=== PATIENT | female | born 1985 | race Caucasian/White ===

== ENCOUNTER 2024-12-31 22:00 | Emergency (ER) | payer BC, SELFPAY ==
--- OUTSIDE RECORDS SUMMARY | 2024-12-01 15:31 | XMS_ITS | Encounter Summary ---
Author Organization [facility] Address [address] [place] [address] Care Team Providers Care Circulation Clerk Name Role Phone None Reported, Pcp Primary Care Provider Unavail able Encounter Details Date Type Department Care Team (Latest Contact Info) Description 12/01/2024 3:31 PM CDT - 12/01/2024 11:59 PM CDT Hospital Encounter Department of Radiology in [place], [place] [address] [place] [phone] Perlita Villanueva, MIKE [address] [place] [phone] Examination Normal First First Trimester (HCC) Discharge Disposition: Home or Self Care Social History Tobacco Use Types Packs/Day Years Used Date Smoking Tobacco: Former Cigarettes 0 06/18/2000 - 05/18/2022 Smokeless Tobacco: Never Comments:curent vaping Alcohol Use Standard Drinks/Week Comments Yes 0 (1 standard drink = 0.6 oz pur e alcohol) occassionally [facility] Utilities Answer Date Recorded In the past 12 months has e electric, gas, oil, or water company threatened to shut off services in your home? No 02/07/2024 Humiliation, Afraid, Rape, and Kick questionnair e Answer Date Recorded Within the last year, have y ou been afraid of your partner or ex-partner? No 10/04/2022 Within the last year, have y ou been humiliated or emotionally abused in other ways by your partner or ex-partner? No Within the last year, have y ou been kicked, hit, slapped, or otherwise physically hurt by your partner or ex-partner? No 10/04/2022 Within the last year, have y ou been raped or forced to have any kind of sexual activity by your partner or ex-partner? No 10/04/2022 Hunger Vital Sign Answer Date Recorded Within the past 12 months, y ou worried that your food would run out before you got the money to buy more. Never true 02/07/20 24 Within the past 12 months, t he food you bought just didn't last and you didn't have money to get more. Never true 02/07/2024 PRAPARE - Transportation Answer Date Re corded In the past 12 months, has l ack of transportation kept you from medical appointments or from getting medications? No 01/17 In the past 12 months, has l ack of transportation kept you from meetings, work, or from getting things needed for daily living? No 02/07/2024 Depression Answer Date Recor ded PHQ-9 Total Score (max 27) 2 02/06 Housing Stability Answer Date Recorded What is your living situation today? I have a [facility] place to live 02/07/2024 Education Answer Date Recorded What is the highest level of school you have completed or the highest degree you have received? 12th grade 03/05/2020 Comments No Sex and Gender Information Value Date Recorded Sex Assigned at Female 06/27/2018 3:00 PM [employer] Legal Sex Female 9:43 AM [employer] Gender Identity Female 06/27/2018 3:00 PM [employer] Sexual Orientation Straight 06/27/2018 3: 00 PM [employer] documented as of this encounter Medications at Time of Discharge acetaminophen (TYLENOL) 500 mg tablet Take 2 tablets (1,000 mg total) by mouth every 6 (six) hours as needed for pain (alternate with ibuprofen every 3 hours. Do not exceed 4000 mg or 4 g in 24 hours.). 30 tablet 05/03/2021 hydrOXYzine (ATARAX) 25 mg tablet Take 1 tablet (25 mg total) by mouth every 8 (eight) hours as needed for anxiety. 30 tablet 5 10/29/2023 traZODone (DesyreL) 50 mg tablet Take 1 tablet (50 mg total) by mouth at bedtime as needed for sleep. 30 tablet 11 02/07/2024 FLUoxetine (PROzac) 20 mg capsule Take 1 capsule (20 mg total) by mouth daily. 90 capsule 3 09/25/2024 ibuprofen (ADVIL,MOTRIN) 200 mg tablet Take 3 tablets (600 mg total) by mouth every 6 (six) hours as needed for pain (Alternate with acetaminophen every 3 hours). 30 tablet 05/03/2021 semaglutide (Wegovy) 0.5 mg/0.5 mL pen injector injectionIndicat ions:Overweight Body Mass Index 25-29.9 Adult Inject 0.5 mg under the skin every 7 (seven) days. 2 mL 09/30/2024 5 triamcinolone (Kenalog) 0.025 % ointmentIndicati ons:Cheilitis Angular Apply 1 Application topically 2 (two) times a day. Apply to affected area twice daily for up to 2 weeks. 30 g 09/30/2024 5 documented as of this encounter Plan of Treatment Upcoming Encounters Date Type Department Care Team (Latest Contact Info) Description 01/27/2025 9:30 AM CDT Routine Department of Obstetrics and Gynecology in [place], [place] [address] [place] [phone] Mayra Art, SILAS, C.N.P., M.S.N. [address] [place] [phone] Discharge Disposition: Home or Self Care documented as of this encounter Procedures Procedure Name Priority Date/Time Associated Diagnosis Comments US OB FIRST TRIMESTER AND TRANSVAGINAL RAD - Routine (most inpatients and all outpatients) 12/01/2024 4:29 PM CDT Examination Normal First First Trimester (HCC) documented in this encounter Results * US OB First Trimester and Transvaginal (12/01/2024 4:29 PM CDT) Anatomical Region Laterality Modality Body, Ultrasound OB RST LOS, Ultrasound ARZ LOS, Ultrasound FLA LOS N/A Ultrasound Impressions 12/01/2024 4:33 PM CDT Single living intrauterine with an ultrasound gestational age of 7 weeks and 4 days giving an ALEXIS of 07/16/2025. Narrative 12/01/2024 4:33 PM CDT EXAM: US OB FIRST TRIMESTER AND TRANSVAGINAL COMPARISON: None. TECHNIQUE: Transabdominal and Transvaginal FINDINGS: Number of Gestations: Single Gestational age and ALEXIS by LMP or OB/EHR assignment: 7 w 6 d, ALEXIS: 07/14/2025 INTRAUTERINE Embryo: Normal, Lutcher-Rump Length: 13.0 mm Gestational Sac: Normal Yolk Sac: Normal Placenta Location: Too Early to ID. Age and ALEXIS by current ultrasound measurements: 7 w 4 d, ALEXIS: 07/16/2025. Cardiac activity: 167 Uterus: No unexpected findings. Right Ovary/Adnexa: Corpus luteum. 2 small cysts/ CL= 1.4cm; 1.7cm Left Ovary/Adnexa: Normal. Cervical Length: Subjectively normal by Transabd evaluation only Intraperitoneal Fluid: None. Procedure Note En Hopper Jr., M.D. - 12/01/2024 EXAM: US OB FIRST TRIMESTER AND TRANSVAGINAL COMPARISON: None. TECHNIQUE: Transabdominal and Transvaginal FINDINGS: Number of Gestations: Single Gestational age and ALEXIS by LMP or OB/EHR assignment: 7 w 6 d, ALEXIS:07/14/2025 INTRAUTERINE Embryo: Normal, Lutcher-Rump Length: 13.0 mm Gestational Sac: Normal Yolk Sac: Normal Placenta Location: Too Early to ID. Age and ALEXIS by current ultrasound measurements: 7 w 4 d, ALEXIS: 07/16/2025. Cardiac activity: 167 Uterus: No unexpected findings. Right Ovary/Adnexa: Corpus luteum. 2 small cysts/ CL= 1.4cm; 1.7cm Left Ovary/Adnexa: Normal. Cervical Length: Subjectively normal by Transabd evaluation only Intraperitoneal Fluid: None. IMPRESSION: Single living intrauterine with an ultrasound gestational age of7 weeks and 4 days giving an ALEXIS of 07/16/2025. us Perlita Villanueva CNRosaura IMG OB US PROCEDURES Final Resul t documented in this encounter Visit Diagnoses Diagnosis Examination Normal First First Trimester (HCC) documented in this encounter Additional Health Concerns Assessment Noted Time PHQ-9 Depression Total Score: 2 02/07/20 24 12:31 PM CDT documented as of this encounter Care Teams Circulation Clerk Relationship Specialty Start Date End Date None Reported, Pcp PCP - General Family Medicine 12/11/23 documented as of this encounter
--- OUTSIDE RECORDS SUMMARY | 2024-12-02 10:45 | XMS_ITS | Encounter Summary ---
Author Organization [facility] Address [address] [place] [address] Care Team Providers Care Nursing Program Director Name Role Phone None Reported, Pcp Primary Care Provider Unavail able Reason for Referral * Outpatient (Routine) - Closed Specialty Diagnoses / Procedures Referred By Contac t Referred To Contact Obstetrics and Gynecology Diagnoses Examination Normal First Trimester (HCC) Mayra Art APRN C.N.P., M.S.N. [address] [place] [address] Phone: tel: fax: [facility] Region Referral ID Status Reason Start Date Expiration Date Visits Re quested Visits Authorized [id number] Closed 12/02/2024 06/03/2026 1 1 Reason for Visit * Reason Comments Confirmation Of LMP 10/07 * Appointment Request (Routine) - Closed Specialty Diagnoses / Procedures Referred By Contac t Referred To Contact Obstetrics and Gynecology Referral ID Status Reason Start Date Expiration Date Visits Re quested Visits Authorized [id number] Closed 11/06/2024 02/06/2026 1 1 Encounter Details Date Type Department Care Team (Late st Contact Info) Description 12/02/2024 10:45 AM CDT Office Visit Department of Obstetrics and Gynecology in [place], [place] [address] [place] [phone] Mayra Art APRN C.N.P., M.S.N. [address] [place] [phone] Examination Normal First Trimester (HCC) (Primary Dx) Discharge Disposition: Home or Self Care Social History Tobacco Use Types Packs/Day Years Used Date Smoking Tobacco: Former Cigarettes 0 06/18/2000 - 05/18/2022 Smokeless Tobacco: Never Tobacco Cessation:Counseling Given: Not Answered Comments:curent vaping Alcohol Use Standard Drinks/Week Comments Yes 0 (1 standard drink = 0.6 oz pur e alcohol) occassionally [facility] Utilities Answer Date Recorded In the past 12 months has e [employer], gas, oil, or water [employer] threatened to shut off services in your [...] your living situation today? I have a [facility] [place] [address] to live 02/07/2024 Education Answer Date Recorded What is the highest level of school you have completed or the highest degree you have received? 12th grade 03/05/2020 Estimated Date of Delivery Comme nts Yes 07/14/2025 Based on last me nstrual period of 10/07/2024 Sex and Gender Information Value Date Recorded Sex Assigned at Female 06/27/2018 3:00 PM [employer] Legal Sex Female 9:43 AM [employer] Gender Identity Female 06/27/2018 3:00 PM [employer] Sexual Orientation Straight 06/27/2018 3: 00 PM [employer] documented as of this encounter Last Filed Vital Signs Vital Sign Reading Time Taken Comments Blood Pressure 99/68 12/02/2024 10:26 AM CDT Pulse 79 12/02/2024 10:26 AM CDT Temperature - - Respiratory Rate - - Oxygen Saturation - - Inhaled Oxygen Concentration - - Weight 66.3 kg (146 lb 1.6 oz) 12/02/2024 10:26 AM CDT Height 156 cm (5' 1.42) 12/02/2024 10:26 AM CDT Body Mass Index 27.23 12/02/2024 10:26 AM CDT documented in this encounter Patient Instructions * Patient Instructions* Mayra Art, SILAS, C.N.P., M.S.N. - 12/02/2024 10:45 AM CDT Tamela - the nicotine inhaler was discontinued in the [place] in 2022 due to supply shortages. It looks like there are options over the counter through retailers. I did send in a prescription for the nasal spray if you would like to try that. This would help with withdrawal symptoms and can be used as infrequently as you could tolerate, thus keeping dosing very low. Congratulations on your ! Thank you for trusting [facility] with your care. This message contains education to support you during the first trimester of your . Please watch the video, Your Care, at the link below. This video link is for patient and family education use only. Do not post on websites or share publicly. [email or web address] Please review these materials via the hyperlinks below: Even if a Mother has HIV, Her Baby Doesn't Have To [id number] [facility] Guide to a Healthy Bookmark [id number] Standard Labs [id number] Why Should I Consider Giving My Baby Breast Milk [id number] Patient Billable Services [id number] You and Your Child WIC Can Help [id number] Education Classes Registration Website [id number] Public Health referral: [email or web address] The [employer] antimicrobial stewardship program has created a patient education video for patientswith a penicillin allergy label to explain the potential harms of this label and encourage them to seek out penicillin allergy testing. The video can be previewed here: [email or web address] Many patients have questions related to Genetic Screening during . We have included some information for you to review. Guide to a Healthy - Chapter 20: Genetic Screening Guide to a Health - Chapter 21: testing Optional Tests [id number] Genetic Support (Guyanese Version) Genetic Support (Amharic version) Managing Nausea and Vomiting During It is common for women to have nausea and vomiting while they are . It is especially commonduring the first three months. Although you may hear it called morning sickness, you can have nausea at any time of day. There are many things you can do to manage your nausea. This brochure gives you ideas about things you can do to ease your symptoms. It also tells you when to contact your health care provider. Usually you need to do a combination of things to feel better. Try the ideas listed here. For example, try eating small meals and going for walks. If you try something for 2 to 3 days, and you don't notice improvement, keep doing what you have been doing but add something new. You may want to keep a record of when you feel sick, so you can figure out what triggers your nausea. You should note: The time. Smells, noises, movement around you. Foods that don???t appeal to you. Avoid the triggers you can identify, if possible. If your nausea is related to other symptoms such as diarrhea, fever or chills, the nausea may not be related to your , and you should contact a member of your health care team. Try diet and lifestyle solutions first. If diet and lifestyle suggestions don???t work, you may need to add medications. Your nausea may not go away completely, but these ideas may help you manage it. And remember, for most women the nausea goes away in a few months. Diet Try these diet suggestions if you have nausea and vomiting: If you are nauseated, don???t worry about eating healthy foods. Just eat what appeals to you. Eat small, frequent meals that are high in carbohydrates and low in fat. Before you go to bed at night, eat a high protein snack. This may help to lessen your nausea in themorning. Examples are plain jakob food cake, peanut butter and crackers, yogurt, string cheese, nuts or cottage cheese. Eat soda crackers or dry toast before you get out of bed in the morning. Stay hydrated. Drink small amounts of water, water with lemon or other fluids often during the day. Eat bland foods. Avoid spicy and fatty foods or foods with a strong odor. Try different flavors and textures - salty, sweet, tart, bland, crunchy, warm, cold, wet and dry. You may tolerate some flavors and textures better. Sip liquids at meals. Avoid hot or cold foods. Try clear liquids such as broth, gelatin or juice. If you have been vomiting, try a small amount ofclear liquid - such as a teaspoon - every 10 to 15 minutes at first. If you keep those down, try mild, non-fatty foods. Try carbonated drinks such as franco alton or clear sodas. Try franco lollipops, lemon drops, fruit drops, peppermints, ice or chewing gum. If odors make you queasy, others may have to prepare meals and do the grocery shopping. If your vitamins make you queasy, take them at night or with a snack. You can try gummy maternity vitamins. If these things don???t help, try stopping the vitamins. You can restart them when your nausea is better. Lifestyle Try relaxation therapies such as deep breathing, progressive muscle relaxation or guided imagery. You can also listen to music. Get plenty of fresh air. If the weather allows, try to walk outside every day. Get enough rest. Being tired can make nausea worse. Typically, you need more rest than usual duringthe first three months of . Complementary treatments Try acupressure bands. These are also called Sea Bands. Try aromatherapy with isopropyl alcohol, franco, peppermint, or other scents that help. Quease EASE inhaler gives you short-term relief only. Try herbal supplements such as franco. Before you take franco, talk with your health care provider. Efky-esf-xwsjwkc supplements and medications If diet, lifestyle and complementary therapies do not improve your nausea a lot, you can try addingsome of the following. Before you try any medications or supplements, check with a member of your health care team. Herbal supplements such as franco (250 mg. capsules four times a day). Vitamin B6 (pyridoxine). You must take this every day in the recommended dose (such as 25 mg. threetimes a day) in order for it to work. Usually you notice improvement in 48 to 72 hours after you start taking it. It won???t work if you only take it when you have nausea. Ask your health care provider how much you should take. If nothing already mentioned works, keep trying diet, lifestyle and complementary treatments in different combinations. One thing alone may not help. In addition, you can also add uljt-ciu-knnqhhx doxylamine (Unisom, Aldex AN) at bedtime along with the vitamin B6. Usually the dose of doxylamine is 10 mg. or ?? a 25-milligram tablet. Ask your health care provider how much you should take. Doxylamine is used as a sleep aid. If taking it at night helps you, you can add additional doses along with the vitamin B6 during the day. Sometimes, prescription medication or IV hydration may be needed. When to contact a member of your health care team Contact a member of your health care team if you notice the following. If you have signs of dehydration, which include: Less urination than usual. Concentrated, dark urine. Dry mucus membranes. Racing heart. Fainting. If you haven???t been able to keep down any food or fluids for 24 hours. PHONE NUMBERS TO CALL: If you have questions about this information or about your , call: During work hours, Sunday - Sunday [place] [phone] After hours and on weekends or holidays COVERAGE SPECIALIST RN Triage: [phone] This material is for your education and information only. This content does not replace medical advice, diagnosis or treatment. New medical research may change this information. If you have questionsabout a medical condition, always talk with your health care provider. ?? 2013 [facility] Medical Education and Research ([facility]). All rights reserved. MEDICATIONS SAFE DURING AND Every woman who is wants to do the right thing for her baby. There are many concerns or difficulties a woman can encounter. Many medications cross the placenta and are also excretedin breast milk. Therefore, it is best to avoid medications during , especially during the first trimester and while nursing. When you are not feeling well, it is often helpful to reflect on what has happened during your day. Have you skipped a meal, are you drinking enough fluids, are you exhausted? Take care of your self first. In order to help you, we have listed ideas and some medications that may help and are considered safe during . Remember, the least amount of medication is always the best. Please call us at if your symptoms are not relieved after two to three days, become worse, or if you have questions about these or any other medications. Problem Treatments Call Provider If Colds, Nasal Congestion, Cough and Fever Steam to clear sinuses Saline nose drops, Neosynephrine, Sudafed, Tylenol, Actifed, Dristan and Tylenol Cold and Flu Plain cough medicine, like Robitussin, for no more than a week and Afrin Nasal Donnellson only as a lastresort - Do Not Use for more than 3 days Fever > 100.4 Coughing up green mucus Sore throat Gargle with warm salt water, popsicles, or suck on hard candy Lozenges (alcohol free) Severe or persistent sore throat Fever > 100.4 Mild headache Calm, quiet atmosphere, cool washcloths to head, rest, 2 quarts of water each day Tylenol (do not take aspirin, ibuprofen, Aleve, Motrin, or Naprosyn) Severe or persistent headache Visual changes with headache Backache Warm bath, heating pad, pelvic rock exercises, good posture and massage Tylenol (Okay to use regular or extra strength) Back pain at the waist level with fever and chills Rhythmic backache with or without cramping before your 9th month Constipation Plenty of fluids, prune juice and fresh fruits and vegetables Citrucel, Colace, Fibercon, Metamucil, Milk of Magnesia and Senokot Severe straining Bloody stool or bleeding with bowel movement Heartburn Small frequent meals. Avoid laying down after eating. Eat cashews or hazelnuts. Avoid leaving things in your mouth for over five minutes (Gum, Life Savers, hard candy) Maalox, Tums, Mylanta or Papaya tablets with meals No relief Hemorrhoids Sitz bath (Warm water soaks). Soak in Epsom salt bath. Chilled witch mario alberto packs. Tuck, Preparation H, Anusol or Tronolane Cream Bleeding or severe pain Rectal pain Insomnia Do regular exercise. Try to maintain a regular sleep pattern. Elevate the head of the bed to sleep. Relaxation tapes and try a warm cup of milk with a warm bath. Tea-chamomile, catnip or peppermint tea Several days of very poor sleep affecting quality of life Nausea, vomiting or morning sickness Crackers next to bed. Small frequent meals. Franco alton or franco root tea, raspberry or mint tea, Sea Bands (Acupressure bands) Vitamin B6 (25 mg by mouth three times per day) Unable to keep anything down (Including liquids) in24 hours Persistent vomiting Dizziness Diarrhea Clear liquids until diarrhea resolves, then eat banana, rice, applesauce or dry toast After 12 weeks: Kaopectate and Imodium for less than 24 hours only Diarrhea persists Blood in stool Uterine cramping Allergy Benadryl 24 mg for 6-to-8 hours as needed Symptoms persist Yeast infection Use as directed: Monistat or Terazol Odor to discharge Symptoms persist Change in discharge DO NOT USE - AVOID THESE ESSENTIAL OILS DURING AND (see lists below) Essential Oil Latin Name Aniseed Pimgurwinderlla anistriston Basil ct. estragole Ocimum basilicum Birch Betula lenta *Camphor Cinnamomum camphora Hyssop Hyssopus officinalis Mugwort Artemisia vulgaris Parsley seed or leaf Petroselinum sativum Pennyroyal Mentha pulegium Jasmeet Salvia officinalis Tansy Tanacetum vulgare Tarragon Artemisia dracunculus Thuja Thuja occidentalis [place] Gaultheria procumbens Wormwood Artemisia absinthium *Note that *Camphor is not the same as Ho Wood/Ho Sproul chemotype Linalool (Cinnamomum camphora ct. Linalool), which has no known contraindications. documented in this encounter Progress Notes * Mayra Art APRN, C.N.P., M.S.N. - 12/02/2024 10:45 AM CDT SUBJECTIVE CHIEF COMPLAINT/REASON FOR VISIT Confirmation of Visit HISTORY OF PRESENT ILLNESS Tamela Chadwick is a 39 y.o. @ 8w0d presenting for her confirmation of visit. Patient's last menstrual period was 10/07/2024. and reports history of regular periods. The couplewas not preventing . She had a positive test November 01. This is her first with her partner, Lane. The couple is excited. Estimated Date of Delivery: 07/14/25 determined by ultrasound at 7 weeks 4 days gestational age She stopped fluoxetine and Wygovy with positive test. She has PRN trazodone for sleep buthas not needed in . OB History 3 Para 2 Term 2 0 AB 0 Living 2 SAB IAB Ectopic Molar Multiple Live Births 2 OBSTETRICAL RISK FACTORS: advanced maternal age, gestational diabetes in second Twin ? [x] NO [] YES [ Folic Acid 1 mg PO daily] History of NTD? [x] NO [] YES [ Folic Acid 4 mg PO daily] History of Thyroid Disorder? [x] NO [] YES [ TSH levels ] History of pre-eclampsia/HELLP [x] NO [] YES [Baseline labs ] Advanced Maternal Age? [] NO [x] YES [Genetic Testing] Pre-Gestational Diabetes [x] NO [] YES [Hgb A1c] History of <37W [x] NO [] YES [ Cervical Length by TVUS starting 16 weeks every 2 week till 24 weeks] Past medical, surgical and family history has been reviewed and updated including allergies and current medication OBJECTIVE BP 99/68 (BP Location: Left arm, Patient Position: Sitting, Cuff Size: Large) Pulse 79 Ht 156 cm Wt 66.3 kg LMP 10/07/2024 BMI 27.23 kg/m?? DIAGNOSTICS I have reviewed previously performed/collected OB ultrasound(s). ACOG Guidelines recommend using ALEXIS based on ultrasound at 7w4d gestational age. Estimated Date of Delivery: 07/14/25 Dating recommendations were according to the ACOG Calculator Application. PHYSICAL EXAMINATION well developed, well nourished, in no acute distress, alert, and oriented X 3 Neurologic: Cranial nerves are grossly intact. ASSESSMENT / PLAN #1 Examination Normal First Trimester (HCC) Issues discussed at this visit: 1. Confirmed estimated due date and communicated it with the patient 2. Discussed nausea and vomiting in as well as addressed changes in nutritional demands in . Reviewed methods available for symptom management and after counselling the patient didnot request treatment. 3. We also discussed first-trimester warnings for earlier follow-up and reporting of any worsening nausea and vomiting which is common in . 4. Discussed safe medication use in and reinforced vitamin supplementation. 5. She will remain off mental health medications at this time. Reports she has increased anxiety when her son is not doing well with his own addictions and recovery, but currently he is in treatment and stable. 6. She is interested in genetic testing with labs next visit. 7. Currently vaping, interested in trying nicotine replacement to quit. Dislikes gum or lozenge taste, but has used inhaler in past. Would want something very low dose as she feels she has cut use considerably already. Prescription for nasal spray option to try. education and Initial OB laboratory studies will be completed at the 12 week gestational visit in addition to any earlier laboratory studies needing to be completed today based on obstetrical risk factors noted above. Upon review of the medical and obstetrical history the patient's level of care is designated as low(level 1). Based on level of risk, she will follow up for her 12 week Initial OB visit with [facility]. She understands the need to identify a delivering location and provider group for 3rd trimester. We explored options within the [facility] system ([facility], [facility] [place] [facility]) as well as outside the system. The couple resides in [place]. We will discuss again as the advances. All the patient questions and concerns were addressed and answered to satisfaction. Mayra Art APRN, C.N.P., M.S.N. documented in this encounter Plan of Treatment Upcoming Encounters Date Type Department Care Team (Latest Contact Info) Description 01/27/2025 9:30 AM CDT Routine Department of Obstetrics and Gynecology in [place], [place] [address] [place] [phone] Mayra Art APRN, C.N.P., M.S.N. [address] [place] [phone] Discharge Disposition: Home or Self Care Scheduled Referrals Name Type Priority Associated Diagnoses Order Schedule Obstetrics and Gynecology - Obstetrics consult (clinic) Outpatient Referral Routine Examination Normal First Trimester (HCC) Expected: 12/30/2024 (Approximate), Expires: 03/04/2026 documented as of this encounter Visit Diagnoses Diagnosis Examination Normal First Trimester (HCC)- Primary documented in this encounter Additional Health Concerns Assessment Noted Time PHQ-9 Depression Total Score: 2 02/07/20 24 12:31 PM CDT documented as of this encounter Care Teams Nursing Program Director Relationship Specialty Start Date End Date None Reported, Pcp PCP - General Family Medicine 12/11/23 documented as of this encounter
--- OUTSIDE RECORDS SUMMARY | 2024-12-30 10:30 | XMS_ITS | Encounter Summary ---
Author Organization [facility] Address [address] [place] [address] Care Team Providers Care Student Accounts Manager Name Role Phone None Reported, Pcp Primary Care Provider Unavail able Reason for Referral * Outpatient (Routine) - Authorized Specialty Diagnoses / Procedures Referred By Contac t Referred To Contact Obstetrics and Gynecology Diagnoses Multigravida Advanced Maternal Age Affecting Management (HCC) Mayra Art APRN C.N.P., M.S.N. [address] [place] [address] Phone: tel: fax: [facility] Region Referral ID Status Reason Start Date Expiration Date V isits Requested Visits Authorized [id number] Authorized 12/30/2024 07/01/2026 1 1 Reason for Visit * Outpatient (Routine) - Closed Specialty Diagnoses / Procedures Referred By Contac t Referred To Contact Obstetrics and Gynecology Diagnoses Examination Normal First Trimester (HCC) Mayra Art APRN, C.N.P., M.S.N. [address] [place] [address] Phone: tel: fax: [facility] Region Referral ID Status Reason Start Date Expiration Date Visits Re quested Visits Authorized [id number] Closed 12/02/2024 06/03/2026 1 1 Encounter Details Date Type Department Care Team (Latest Contact Info) Description 12/30/2024 10:30 AM CDT Initial Department of Obstetrics and Gynecology in [place], [place] [address] [facility] [place] [id number] Mayra Art APRN C.N.P., M.S.N. [address] [place] [phone] GA: 12w0d Discharge Disposition: Home or Self Care Social History Tobacco Use Types Packs/Day Years Used Date Smoking Tobacco: Former Cigarettes 0 06/18/2000 - 05/18/2022 Smokeless Tobacco: Never Comments:curent vaping Alcohol Use Standard Drinks/Week Comments Not Currently 0 (1 standard drink = 0.6 oz pur e alcohol) occassionally [facility] Utilities Answer Date Recorded In the past 12 months has e [employer], gas, oil, or water [employer] threatened to shut off services in your [...] Recor ded PHQ-9 Total Score (max 27) 5 12/30 Housing Stability Answer Date Recorded What is your living situation today? I have a [employer] place to live 02/07/2024 Education Answer Date Recorded What is the highest level of school you have completed or the highest degree you have received? 12th grade 03/05/2020 Estimated Date of Delivery Comme nts Yes 07/14/2025 Based on last me nstrual period of 10/07/2024 Sex and Gender Information Value Date Recorded Sex Assigned at Female 06/27/2018 3:00 PM SR VICE PRESIDENT Legal Sex Female 9:43 AM SR VICE PRESIDENT Gender Identity Female 06/27/2018 3:00 PM SR VICE PRESIDENT Sexual Orientation Straight 06/27/2018 3: 00 PM SR VICE PRESIDENT documented as of this encounter Last Filed Vital Signs Vital Sign Reading Time Taken Comments Blood Pressure 99/65 12/30/2024 10:53 AM CDT Pulse 84 12/30/2024 10:53 AM CDT Temperature 36.8 C (98.2 F) 12/30/2024 10:53 AM CDT Respiratory Rate - - Oxygen Saturation - - Inhaled Oxygen Concentration - - Weight 69.1 kg (152 lb 6.4 oz) 12/30/2024 10:53 AM CDT Height - - Body Mass Index 28.41 12/02/2024 10:26 AM CDT documented in this encounter Progress Notes * Mayra Art, SILAS, C.N.P., M.S.N. - 12/30/2024 10:30 AM CDT Images from the original note were not included. SUBJECTIVE CHIEF COMPLAINT/REASON FOR VISIT New History and Physical Visit HISTORY OF PRESENT ILLNESS Tamela Chadwick is a 39 y.o. @ 12w0d Estimated Date of Delivery: 07/14/25 by LMP consistent with 8 week ultrasound presenting for her intake history and physical examination. The patient's partner and/or father of the baby's name is Lane. This is their first together. Specific concerns today include: none. Patient has no complaints. PRIOR OBSTETRIC COMPLICATIONS: Gestational Diabetes (Diet Controlled) CURRENT OBSTETRICAL RISK FACTORS: advanced maternal age and tobacco abuse Twin ? [x] NO [] YES [Folic Acid 1 mg PO daily] History of NTD? [x] NO [] YES [Folic Acid 4 mg PO daily] History of pre-eclampsia/HELLP [x] NO [] YES [Baseline labs] History of Thyroid Disorder? [x] NO [] YES [TSH levels ] Advanced Maternal Age? [] NO [x] YES [Genetic Testing] Pre-Gestational Diabetes [x] NO [] YES [Hgb A1c] History of <37W [x] NO [] YES [Cervical Length by TVUS starting 16 weeks every 2 week till 24 weeks] REVIEW OF SYSTEMS A comprehensive review of systems was negative except for: Constitutional: fatigue RELEVANT MEDICAL HISTORY/SCREENINGS: GYNECOLOGICAL HISTORY AND PROBLEMS: None CERVICAL CANCER SCREEN HISTORY: Up-To-Date and last performed on 08/26/2024 CLINICAL RISK ASSESSMENT FOR PREECLAMPSIA: Major Risk Factors (2 points): none, no risk factors Minor risk factors (1 point) : age greater than or equal to 35 Total score of major and minor risk factors: 1 The patient does not meet the criteria for prophylactic aspirin use. INCONTINENCE SCREEN: Urine: NONE; Anal: analincontin: NONE SEXUALLY TRANSMITTED ILLNESS: none GENETIC HISTORY SCREENING: negative PSYCHOSOCIAL ASSESSMENT: - denies uncontrolled mood disturbances or psychiatric concerns - denies domestic violence/abuse concerns - denies history of or current alcohol or other substance abuse 10/04/2022 12:44 PM 06/22/2023 8:18 AM 02/07/2024 12:31 PM GAD7 Score NOLA-7 Total Score (max 21) 0 6 2 Patient-reported 10/04/2022 12:44 PM 06/22/2023 8:11 AM 02/07/2024 12:31 PM PHQ9 Score PHQ-9 Total Score (max 27) 0 4 2 Patient-reported Data saved with a previous flowsheet row definition OB History 3 Para 2 Term 2 0 AB 0 Living 2 SAB IAB Ectopic Molar Multiple Live Births 2 I have reviewed the patient's past medical, surgical, and family history, including allergies and active medication list and have made changes as reported by the patient. Allergies[1] OBJECTIVE BP 99/65 Pulse 84 Temp 36.8 ??C Wt 69.1 kg LMP 10/07/2024 BMI 28.41 kg/m?? PHYSICAL EXAMINATION Constitutional: well developed, well nourished, in no acute distress, alert, and oriented X 3 HEENT: Conjunctivae anicteric and not inspected. Maintained dentition and moist oral mucosa. No palpable cervical adenopathy or thyroid masses. Heart: regular rate and rhythm Lungs: Clear to auscultation, no audible adventitial sounds, equal bilateral air entry. Abdomen: abdomen is soft without significant tenderness, masses, organomegaly or guarding Lower Extremity: All normal.. Pelvic exam: - Vulva: normal female genitalia - Vagina: Mucosa with intact rugae and good estrogen effect - Discharge: normal and physiologic - Bladder and Urethra: Urethra normal - Cervix: GCC done. - Bimanual exam: deferred DIAGNOSTICS Bedside Limited Abdominal OB US: viable intrauterine , 136 bpm I have also reviewed previously performed/collected OB ultrasound(s). ASSESSMENT / PLAN Diagnosis Plan 1. Multigravida Advanced Maternal Age Affecting Management ([facility]) Panorama Screen- Sent Out Lab Obstetrics and Gynecology office visit (clinic) 2. Examination Normal First Trimester ([facility]) Obstetrics and Gynecology - Obstetrics consult (clinic) Type and Screen (with Reflex Antibody ID) Bacterial Culture, Aerobic + Susceptibility, Urine CBC with Differential, Blood Chlamydia / Gonorrhoeae Amplified RNA Hemoglobin A1c Hemoglobin Electrophoresis Evaluation HBs Antigen , Serum HBs Antibody , Serum HBc Total Ab , Serum Hepatitis C Virus Antibody Screen HIV-1/-2 Ag and Ab Scrn, Plasma Rubella Antibodies, IgG Syphilis Total Antibody with Reflex, S ([facility]) Urinalysis with Microscopic if Indicated: Urine, Midstream Varicella-Zoster Antibody, IgG, Serum nicotine (NicotroL NS) 10 mg/mL nasal spray Panorama Screen - Sent Out Lab OB COLLABORATIVE RISK DESIGNATION: Level 1 The patient was counselled regarding the safe prescribing and consumption of medications in . Reviewed precautions of first trimester signs and symptoms for earlier follow up including nausea and vomiting. Other comfort/relief measures for common discomforts of discussed as approp riate. Discussed travel precautions and work environment precautions in terms of risk of exposure to infections, or work related hazards. Discussed genetic screening and pros/cons of every approach given her level of risk. Non-invasive screen (NIPS) ordered She does want gender reported. Discussed nutrition, hydration, exercise, and weight gain recommendations. 7 kg- 11.5 kg The patient was screened for preeclampsia risk factors. The patient does not meet the criteria for prophylactic aspirin use. The standard obstetrical laboratory work up will be collected today and the patient will be contacted with results. -She was on fluoxetine prior to and stopped with positive test. She feels her mood symptoms are manageable and stable. -Currently vaping but trying to discontinue altogether. She was unable to roll picker nicotine spray after last visit. We resent prescription today. -She anticipates transfer of care to [facility] for 3rd trimester and delivery care. Would like to stay local for now. CHECK ITEMS IDENTIFIED RISK FACTORS [CONSIDER REFERRAL TO MANAGER AUDIT OF ONE OR MORE RISK FACTORS WERE IDENTIFIED] [] Past Obstetric Events and infant outcomes: [] Medical considerations in a current : [] Breast feeding history : [] Family Circumstances: [] Desire for : [x] Tobacco or substance use: [] Depression and Anxiety: [] Safety: [] Intimate partner violence: [] Stress : [] Barriers to care: [] Unstable housing: [] Communication barriers and nutrition: FOLLOW UP PLAN: Consults and Follow-ups to Schedule Obstetrics and Gynecology office visit (clinic) Jan 27, 2025 (Approximate) F/u OB Region: [facility] Region Reason for Visit: OB Provider needed: Self Visit length: Short Patient location: Patient Preference Appropriate options of care and visit schedule discussed with patient. Plan for TRUONG Follow-up in 4 weeks. PATIENT EDUCATION Ready to learn, barriers to learning: None. All patient question and concerns were addressed and answered to her satisfaction. Mayra Art APRN, C.N.P., M.S.N. [1] Allergies Allergen Reactions Pollen Extracts Other (see comments) Runny nose, itchy eyes documented in this encounter Plan of Treatment Upcoming Encounters Date Type Department Care Team (Latest Contact Info) Description 01/27/2025 9:30 AM CDT Routine Department of Obstetrics and Gynecology in [address] [phone] Mayra Art, SILAS, C.N.P., M.S.N. [address] [place] [phone] Discharge Disposition: Home or Self Care Pending Results Name Type Priority Associated Diagnoses Date /Time Panorama Screen - Sent Out Lab Lab Routine Examination Normal First Trimester (HCC) Multigravida Advanced Maternal Age Affecting Management (HCC) 12/30/2024 12:07 PM CDT Scheduled Orders Name Type Priority Associated Diagnoses Orde r Schedule Panorama Screen - Sent Out Lab Lab Routine Examination Normal First Trimester (HCC) Multigravida Advanced Maternal Age Affecting Management (HCC) Expected: 12/30/2024, Expires: 04/01/2026 Scheduled Referrals Name Type Priority Associated Diagnoses Order Schedule Obstetrics and Gynecology office visit (clinic) Outpatient Referral Routine Multigravida Advanced Maternal Age Affecting Management (HCC) Expected: 01/27/2025 (Approximate), Expires: 04/01/2026 documented as of this encounter Procedures Procedure Name Priority Date/Time Associated Diagnosis Comments URINALYSIS WITH MICROSCOPIC IF INDICATED, U Routine 12/30/2024 11:57 AM CDT Examination Normal First Trimester ([facility]) BACTERIAL CULTURE, AEROBIC + SUSC, URINE Routine 12/30/2024 11:57 AM CDT Examination Normal First Trimester ([facility]) CHLAMYDIA/GONORRHOEA E AMPLIFIED RNA Routine 12/30/2024 11:57 AM CDT Examination Normal First Trimester ([facility]) documented in this encounter Results * Varicella-Zoster Antibody, IgG, Serum (12/30/2024 12:07 PM CDT) [facility] Varicella-Zoster Ab, IgG, S Positive 12/31/2024 11:53 AM CDT [facility] Comment: Results suggest response to immunization or prior exposure to the virus. ----REFERENCE VALUE---- Vaccinated: Positive (>=1.1 AI) Unvaccinated: Negative (<=0.8 AI) Varicella IgG Antibody Index 1.2 12/31/2024 11:53 AM CDT CA Blood (Blood, Venous) 12/30/2024 12:07 PM CDT 12/30/2024 7:31 PM CDT Mayra Art APRN, C.N.P., M.S.N. LAB MICROBIO LOGY - BLOOD ORDERABLES Final Result Performing Organization Address City/[facility]/ZIP Co de Phone Number [facility] [address] [place] [address], [facility] in [address] [address] * Syphilis Total Antibody with Reflex, S ([facility]) (12/30/2024 12:07 PM CDT) Syphilis Total Ab w/ Reflex Nonreactive Nonreactive 12/31/2024 11:53 AM CDT [facility] Comment: No serologic evidence of infection with T. pallidum (syphilis). Repeat testing may be considered in patients with suspected acute or primary syphilis in 2-4 weeks. For additional information on interpretation of the syphilis reverse algorithm and results, see: [email or web address] Blood (Blood, Venous) 12/30/2024 12:07 PM CDT 12/30/2024 7:31 PM CDT Mari Barnett APRN.NDevika., M.S.N. LAB BLOOD AD D-ON Final Result Performing Organization Address City/[facility]/ZIP Co de Phone Number [facility] [address] [place] [address], [facility] in [address] [address] * Rubella Antibodies, IgG (12/30/2024 12:07 PM CDT) Rubella Ab, IgG, S Positive 12/31/2024 11:53 AM CDT [facility] Comment: Results suggest response to immunization or prior exposure to the virus. ----REFERENCE VALUE---- Vaccinated: Positive (>=1.0 AI) Unvaccinated: Negative (<=0.7 AI) Rubella IgG Antibody Index 1.3 12/31/2024 11:53 AM CDT [facility] Blood (Blood, Venous) 12/30/2024 12:07 PM CDT 12/30/2024 7:31 PM CDT us Mayra Art APRN C.N.P., M.S.N. LAB MICROBIO LOGY - BLOOD ORDERABLES Final Result [facility] [address] [place] [address], [facility] in [address] [address] * HIV-1/-2 Ag and Ab Scrn, Plasma (12/30/2024 12:07 PM CDT) HIV Ag/Ab Scrn, P Negative Negative 12/30/2024 4:17 PM CDT [facility] Comment: Negative result does not rule out HIV infection. If exposure to HIV infection occurred <14 days ago, contact the laboratory to request addition of HIV-1/HIV-2 RNA detection , Plasma (HPP12). HIV-1 p24 Ag Scrn, P Negative Negative 12/30/2024 4:17 PM CDT [facility] Comment: Negative result does not rule out HIV infection. If exposure to HIV infection occurred <14 days ago, contact the laboratory to request addition of HIV-1/HIV-2 RNA detection , Plasma (HPP12). HIV-1 Ab Scrn, P Negative Negative 12/30/2024 4:17 PM CDT [facility] Comment: Negative result does not rule out HIV infection. If exposure to HIV infection occurred <14 days ago, contact the laboratory to request addition of HIV-1/HIV-2 RNA detection , Plasma (HPP12). HIV-2 Ab Scrn, P Negative Negative 12/30/2024 4:17 PM CDT [facility] Comment: Negative result does not rule out HIV infection. If exposure to HIV infection occurred <14 days ago, contact the laboratory to request addition of HIV-1/HIV-2 RNA detection , Plasma (HPP12). Blood (Blood, Venous) 12/30/2024 12:07 PM CDT 12/30/2024 2:50 PM CDT Mayra Art APRN, C.N.P., M.S.N. LAB MICROBIO LOGY - BLOOD ORDERABLES Final Result Performing Organization Address City/[facility]/ZIP Co de Phone Number [facility] [address] [place] [phone], [place] [facility] in [address] [address] * Hepatitis C Virus Antibody Screen (12/30/2024 12:07 PM CDT) HCV Ab Scrn , S Negative Negative 12/30/2024 9:53 PM CDT [facility] Comment: Consumption of high-dose biotin supplement within 12 hours of blood collection for this test can cause false-negative results. Blood (Blood, Venous) 12/30/2024 12:07 PM CDT 12/30/2024 8:52 PM CDT Result [facility] Mayra Art APRN, C.N.P., M.S.N. LAB MICROBIO LOGY - BLOOD ORDERABLES Final Result Performing Organization Address City[facility]/ZIP Co de Phone Number [facility] [address] [place] [address] [facility] [address] [place] [address] * HBc Total Ab , Serum (12/30/2024 12:07 PM CDT) HBc Total Ab , S Negative Negative 12/30/2024 9:53 PM CDT [facility] Blood (Blood, Venous) 12/30/2024 12:07 PM CDT 12/30/2024 8:52 PM CDT Mayra Art APRN, C.N.P., M.S.N. LAB MICROBIO LOGY - BLOOD ORDERABLES Final Result [facility] [address] [place] [id number] [facility] [address] [place] [id number] * HBs Antibody , Serum (12/30/2024 12:07 PM CDT) HBs Antibody , S Negative 12/30/2024 4:56 PM CDT [facility] Comment: Patient is presumed NOT to be immune to infection with HBV. Consumption of high-dose biotin supplement within 12 hours of blood collection for this test can cause false-negative results. ----REFERENCE VALUE---- Unvaccinated: Negative Vaccinated: Positive HBs Antibody, Quantitative, S <3.50 mIU/mL 12/30/2024 4:56 PM CDT [facility] Comment: ----REFERENCE VALUE---- <8.50: Negative 8.50-11.49: Indeterminate >=11.50: Positive Blood (Blood, Venous) 12/30/2024 12:07 PM CDT 12/30/2024 4:30 PM CDT Mayra Art APRN, C.N.P., M.S.N. LAB MICROBIO LOGY - BLOOD ORDERABLES Final Result [facility] [address] [place] [address], [address] [address] * HBs Antigen , Serum (12/30/2024 12:07 PM CDT) HBs Antigen , S Negative Negative 12/30/2024 9:53 PM CDT [facility] Blood (Blood, Venous) 12/30/2024 12:07 PM CDT 12/30/2024 8:52 PM CDT Mayra Art APRN, C.N.P., M.S.N. LAB MICROBIO LOGY - BLOOD ORDERABLES Final Result [facility] [address] [place] [id number] [facility] [address] [place] [phone] * Hemoglobin Electrophoresis Evaluation (12/30/2024 12:07 PM CDT) Hb A 97.3 95.8 - 98.0 % 12/31/2024 2:46 PM CDT DTL Hb F 0.0 0.0 - 0.9 % 12/31/2024 2:46 PM CDT DTL Hb A2 2.7 2.0 - 3.3 % 12/31/2024 2:46 PM CDT [facility] Comment: ----ADDITIONAL INFORMATION---- This test has been modified from the dental aide's instructions. Its performance characteristics were determined by [facility] in a manner consistent with CLIA requirements. This test has not been cleared or approved by the U.S. Food and Drug Administration. HPLC Hb Variant, B See Interpretation 12/31/2024 2:46 PM CDT [facility] Comment: ----ADDITIONAL INFORMATION---- This test has been modified from the dental aide's instructions. Its performance characteristics were determined by [facility] in a manner consistent with CLIA requirements. This test has not been cleared or approved by the U.S. Food and Drug Administration. Hb Electrophoresis Interpretation No electrophoretic evidence of abnormal hemoglobin or beta thalassemia. See comment. Comment: These results do not exclude alpha thalassemia. The vast majority of hemoglobin variants and beta complex thalassemias are excluded, including the common variants Hbs S, C, D, and E, although some rare clinically significant hemoglobin disorders are electrophoretically silent. In particular, some variants such as Hb Constant Spring, or other variants, may not be detected. If otherwise unexplained lifelong/familial symptoms such as hemolysis (i.e. West body hemolytic anemia), microcytosis, erythrocytosis, cyanosis, or hypoxia are present and additional testing is desired, please call the Met[facility] Hematology Laboratory ( ). If alpha thalassemia is a consideration, alpha globin gene deletion/duplication analysis is available (AGDD/Alpha Globin Cluster Locus Del/Dup). If genotyping to assess for Hb Constant [place] is desired, please order [facility]/Alpha Globin Gene Sequencing, B. Additional sample required. Methodologies utilized in this interpretation include: capillary electrophoresis, HPLC. 12/31/2024 2:46 PM CDT [facility]TL Blood (Blood, Venous) 12/30/2024 12:07 PM CDT 12/31/2024 7:20 AM CDT Fred Barnett APRNNDevika., M.S.N. LAB BLOOD AD D-ON Final Result [facility] [address] [place] [address], [facility] [address] [facility] [address] [place] [address] * Hemoglobin A1c (12/30/2024 12:07 PM CDT) Hemoglobin A1c, B 5.3 4.2 - 5.6 % 12/30/2024 12:37 PM CDT [facility] Blood (Blood, Venous) 12/30/2024 12:07 PM CDT 12/30/2024 12:18 PM CDT Fred Barnett APRNNDevika., M.S.N. LAB BLOOD AD D-ON Final Result [facility] [address] [place] [address], [place] NPRG [facility] [address] [place] [address] * CBC with Differential, Blood (12/30/2024 12:07 PM CDT) Hemoglobin 12.7 11.6 - 15.0 g/dL 12/30/2024 12:24 PM CDT [facility] Hematocrit 36.8 35.5 - 44.9 % 12/30/2024 12:24 PM CDT [facility] Erythrocytes 3.94 3.92 - 5.13 x10(12)/L 12/30/2024 12:24 PM CDT [facility] MCV 93.4 78.2 - 97.9 fL 12/30/2024 12:24 PM CDT [facility] RBC Distrib Width 12.2 12.2 - 16.1 % 12/30/2024 12:24 PM CDT [facility] Platelet Count 233 157 - 371 x10(9)/L 12/30/2024 12:24 PM CDT [facility] Leukocytes 8.6 3.4 - 9.6 x10(9)/L 12/30/2024 12:24 PM CDT [facility] Neutrophils 6.27 1.56 - 6.45 x10(9)/L 12/30/2024 12:24 PM CDT [facility] Lymphocytes 1.81 0.95 - 3.07 x10(9)/L 12/30/2024 12:24 PM CDT [facility] Monocytes 0.44 0.26 - 0.81 x10(9)/L 12/30/2024 12:24 PM CDT [facility] Eosinophils <0.04 0.03 - 0.48 x10(9)/L 12/30/2024 12:24 PM CDT [facility] Basophils <0.04 0.01 - 0.08 x10(9)/L 12/30/2024 12:24 PM CDT [facility] Blood (Blood, Venous) 12/30/2024 12:07 PM CDT 12/30/2024 12:18 PM CDT us Mayra Art APRN C.N.P., M.S.N. LAB BLOOD AD D-ON Final Result [facility] [address] [place] [address], [facility] NPRG [facility] [address] [place] [address] * Type and Screen (with Reflex Antibody ID) (12/30/2024 12:07 PM CDT) ABO Group B 12/30/2024 1:19 PM CDT [facility] Rh Type NEG 12/30/2024 1:19 PM CDT [facility] Antibody Screen NEG 1:35 PM CDT [facility] Type & Screen Expiration 01/02/2025 23:59 12/30/2024 1:35 PM CDT [facility] ELXM Eligible Y 12/30/2024 1:35 PM CDT [facility] Blood (Blood, Venous) 12/30/2024 12:07 PM CDT 12/30/2024 12:18 PM CDT us Mayra Art APRN, C.N.P., M.S.N. LAB BLOOD BA NK TEST ORDERABLES Final Result [facility] [address] [place] [address], [facility] NPRG [facility] [address] [place] [address] * Urinalysis with Microscopic if Indicated: Urine, Midstream (12/30/2024 11:57 AM CDT) Source Urine, Urine, Midstream 12/30/2024 12:00 PM CDT [facility] Clarity Clear Clear 12/30/2024 12:04 PM CDT [facility] Color Yellow 12/30/2024 12:04 PM CDT [facility] Comment: ----REFERENCE VALUE---- Colorless Yellow Barbara Blood Negative Negative 12/30/2024 12:04 PM CDT [facility] Nitrite Negative Negative 12/30/2024 12:04 PM CDT [facility] Leukocyte Esterase Negative Negative 12/30/2024 12:04 PM CDT [facility] Protein Negative mg/dL 12/30/2024 12:04 PM CDT [facility] Comment: ----REFERENCE VALUE---- Negative Trace Glucose Negative Negative mg/dL 12/30/2024 12:04 PM CDT [facility] Ketones, QI(U) Negative Negative mg/dL 12/30/2024 12:04 PM CDT [facility] Bilirubin Negative Negative 12/30/2024 12:04 PM CDT [facility] pH 6.0 5.0 - 8.0 12/30/2024 12:04 PM CDT [facility] Specific [place] <=1.005 1.001 - 1.035 12/30/2024 12:04 PM CDT [facility] Urobilinogen 0.2 0.2 - 1.0 mg/dL 12/30/2024 12:04 PM CDT [facility] Urine (Urine, Midstream) 12/30/2024 11:57 AM CDT 12/30/2024 11:59 AM CDT us Mari Barnett APRN.N.Esperanza., M.S.N. LAB URINE OR DERABLES Final Result [facility] [address] [place] [address], [facility] NPRG [facility] [address] [place] [address] * Chlamydia / Gonorrhoeae Amplified RNA (12/30/2024 11:57 AM CDT) Source Swab, Vagina 12/31/2024 2:03 AM CDT [facility] Chlamydia trachomatis amplified RNA Negative Negative 12/31/2024 2:03 AM CDT [facility] Source Swab, Vagina 12/31/2024 2:03 AM CDT MKTO Neisseria gonorrhoeae amplified RNA Negative Negative 12/31/2024 2:03 AM CDT MKTO Swab (Vagina) 12/30/2024 11: 57 AM CDT 12/30/2024 2:05 PM CDT us Mayra Art APRN, Mari.N.P., M.S.N. LAB MICROBIOLOGY - GENERAL ORDERABLES Final Result [facility] [address] [place] [address], [place] MKTO [address] [address] * Bacterial Culture, Aerobic + Susceptibility, Urine (12/30/2024 11:57 AM CDT) Urine Culture Urogenital microbiota, susceptibilities not performed per laboratory criteria. 12/31/2024 8:15 AM CDT MKTO Urine (Urine, Midstream) 12/30/2024 11:57 AM CDT 12/30/2024 2:05 PM CDT Comment:Specimen Source Site : Urine us Mayra Art APRN, C.N.P., M.S.N. LAB MICROBIOLOGY - GENERAL ORDERABLES Final Result Performing Organization Address City/State/[facility] Co de Phone Number [facility] [address] [place] [address], [facility] MKTO [facility] in [place] [address] [place] [address] documented in this encounter Visit Diagnoses Diagnosis Multigravida Advanced Maternal Age Affecting Management (HCC)- Primary Examination Normal First Trimester (HCC) documented in this encounter Additional Health Concerns Assessment Noted Time PHQ-9 Depression Total Score: 5 12/31/19 25 1:49 PM CDT documented as of this encounter Care Teams Student Accounts Manager Relationship Specialty Start Date End Date None Reported, Pcp PCP - General Family Medicine 12/11/23 documented as of this encounter
--- OUTSIDE RECORDS SUMMARY | 2024-12-30 12:01 | XMS_ITS | Encounter Summary ---
Author Organization [facility] Address [address] [place] [address] Care Team Providers Care Mushroom Cutter Name Role Phone None Reported, Pcp Primary Care Provider Unavail able Encounter Details Date Type Department Care Team (Latest Contact Info) Description 12/30/2024 12:01 PM CDT - 12/30/2024 11:59 PM CDT Hospital Encounter Department of Laboratory Medicine in [place], [place] [address] [place] [phone] Mayra Art, SILAS, C.N.P., M.S.N. [address] [place] [phone] Examination Normal First Trimester (HCC); Multigravida Advanced Maternal Age Affecting Management (HCC) Discharge Disposition: Home or Self Care Social History Tobacco Use Types Packs/Day Years Used Date Smoking Tobacco: Former Cigarettes 0 06/18/2000 - 05/18/2022 Smokeless Tobacco: Never Comments:curent vaping Alcohol Use Standard Drinks/Week Comments Not Currently 0 (1 standard drink = 0.6 oz pur e alcohol) occassionally [facility] Utilities Answer Date Recorded In the past 12 months has e [employer], gas, oil, or water company threatened to [...] your living situation today? I have a [facility] place to live 02/07/2024 Education Answer Date Recorded What is the highest level of school you have completed or the highest degree you have received? 12th grade 03/05/2020 Estimated Date of Delivery Comme nts Yes 07/14/2025 Based on last me nstrual period of 10/07/2024 Sex and Gender Information Value Date Recorded Sex Assigned at Female 06/27/2018 3:00 PM JET WIPER Legal Sex Female 9:43 AM JET WIPER Gender Identity Female 06/27/2018 3:00 PM JET WIPER Sexual Orientation Straight 06/27/2018 3: 00 PM JET WIPER documented as of this encounter Medications at [...] needed for anxiety. 30 tablet 5 10/29/2023 nicotine (NicotroL NS) 10 mg/mL nasal sprayIndications :Examination Normal First Trimester (HCC) Use 1 spray in each nostril every 1 to 2 hours or as needed for tobacco withdrawal symptoms. Not to exceed 40 doses (80 sprays) per day 10 mL 2 12/30/2024 twrtots-Si-fmkb- FA 27 mg iron- 1 mg tablet Take 1 tablet by mouth daily. traZODone (DesyreL) 50 mg tablet Take 1 tablet (50 mg total) by mouth at bedtime as needed for sleep. 30 tablet 11 02/07/2024 documented as of this encounter Plan of Treatment Upcoming Encounters Date Type Department Care Team (Latest Contact Info) Description 01/27/2025 9:30 AM CDT Routine Department of Obstetrics and Gynecology in [place], [place] [address] [place] [phone] Mayra Art, SILAS, C.N.P., M.S.N. [address] [place] [phone] Discharge Disposition: Home or Self Care Pending [...] Multigravida Advanced Maternal Age Affecting Management (HCC) Once for 1 Occurrences starting 12/30/2024 until 12/30/2024 documented as of this encounter Procedures Procedure Name Priority Date/Time Associated Diagnosis Comments HBC TOTAL AB , S Routine 12/30/2024 12:07 PM CDT Examination Normal First Trimester (HCC) HBS ANTIBODY , S Routine 12/30/2024 12:07 PM CDT Examination Normal First Trimester (HCC) HCV AB SCRN , S Routine 12/31/19 12:07 PM CDT Examination Normal First Trimester (HCC) TESTING LOCATION Routine 12/30/2024 12:0 7 PM CDT HIV-1/-2 AG AND AB SCRN, PLASMA Routine 12/30/2024 12:07 PM CDT Examination Normal First Trimester (HCC) SYPHILIS TOTAL AB W/ REFLEX S Routine 12/30/2024 12:07 PM CDT Examination Normal First Trimester (HCC) HBS ANTIGEN , S Routine 12/31/19 12:07 PM CDT Examination Normal First Trimester (HCC) HEMOGLOBIN ELECTROPHORESIS CASCADE, B Routine 12/30/2024 12:07 PM CDT Examination Normal First Trimester (HCC) RUBELLA ANTIBODIES, IGG Routine 12/31/19 12:07 PM CDT Examination Normal First Trimester (HCC) CBC WITH DIFFERENTIAL, B Routine 12/30/2024 12:07 PM CDT Examination Normal First Trimester (HCC) TYPE AND SCREEN Routine 12/30/2024 12:07 PM CDT Examination Normal First Trimester (HCC) VARICELLA-ZOSTER AB, IGG, S Routine 12/30/2024 12:07 PM CDT Examination Normal First Trimester (HCC) HEMOGLOBIN A1C, B Routine 12/30/2024 12: 07 PM CDT Examination Normal First Trimester (HCC) documented in this encounter Results * Testing Location (12/30/2024 12:07 PM CDT) Testing Location [facility] DEFAULT 12/30/2024 12:19 PM CDT [facility] Blood 12/30/2024 12:0 7 PM CDT 12/30/2024 12:18 PM CDT Mayra Art APRN, C.N.P., M.S.N. LAB BLOOD BA NK TEST ORDERABLES Final Result Performing Organization Address City/[facility]/ZIP Co de Phone Number [facility] [address] [place] [address], [place] NPRG [facility] [address] [place] [address] * Varicella-Zoster Antibody, IgG, Serum (12/30/2024 12:07 PM CDT) Varicella-Zoster Ab, IgG, S Positive 12/31/2024 11:53 AM CDT [facility] Comment: Results suggest response to immunization or prior exposure to the virus. ----REFERENCE VALUE---- Vaccinated: Positive (>=1.1 AI) Unvaccinated: Negative (<=0.8 AI) Varicella IgG Antibody Index 1.2 12/31/2024 11:53 AM CDT [facility] Blood (Blood, Venous) 12/30/2024 12:07 PM CDT 12/30/2024 7:31 PM CDT rFed Barnett APRNNDevika., M.S.N. LAB MICROBIO LOGY - BLOOD ORDERABLES Final Result [facility] [address] [place] [address], [place] [facility] [place] [address] [place] [address] * Syphilis Total Antibody with Reflex, S ([facility]) (12/30/2024 12:07 PM CDT) Syphilis Total Ab w/ Reflex Nonreactive Nonreactive 12/31/2024 11:53 AM CDT [facility] Comment: No serologic evidence of infection with T. pallidum (syphilis). Repeat testing may be considered in patients with suspected acute or primary syphilis in 2-4 weeks. For additional information on interpretation of the syphilis reverse algorithm and results, see: [email or web address] Blood (Blood, Venous) 12/30/2024 12:07 PM CDT 12/30/2024 7:31 PM CDT Mayra Art APRN, C.N.P., M.S.N. LAB BLOOD AD D-ON Final Result Performing Organization Address [facility]/ZIP Co de Phone Number [facility] [address] [place] [phone], [facility] in [address] [address] * Rubella Antibodies, IgG (12/30/2024 12:07 PM CDT) Rubella Ab, IgG, S Positive 12/31/2024 11:[address] [facility] Comment: Results suggest response to immunization or prior exposure to the virus. ----REFERENCE VALUE---- Vaccinated: Positive (>=1.0 AI) Unvaccinated: Negative (<=0.7 AI) Rubella IgG Antibody Index 1.3 12/31/2024 11:[address] [facility] Blood (Blood, Venous) 12/30/2024 12:07 PM CDT 12/30/2024 7:31 PM CDT Mari Barnett APRN.NDevika., M.S.N. LAB MICROBIO LOGY - BLOOD ORDERABLES Final Result Performing Organization Address [facility]/ZIP Co de Phone Number [facility] [address] [place] [address], [facility] in [address] [address] * HIV-1/-2 Ag and Ab Scrn, Plasma [...] 12:07 PM CDT 12/30/2024 2:50 PM CDT us Mayra Art APRN, C.N.P., M.S.N. LAB MICROBIO LOGY - BLOOD ORDERABLES Final Result [facility] [address] [place] [address], [facility] [place] [address] [place] [address] * Hepatitis C Virus Antibody Screen (12/30/2024 12:07 PM CDT) HCV Ab Scrn , S Negative Negative 12/30/2024 9:53 PM CDT [facility] Comment: Consumption of high-dose biotin supplement within 12 hours of blood collection for this test can cause false-negative results. Blood (Blood, Venous) 12/30/2024 12:07 PM CDT 12/30/2024 8:52 PM CDT Mayra Art APRN, C.N.P., M.S.N. LAB MICROBIO LOGY - BLOOD ORDERABLES Final Result Performing Organization Address City/[facility]/ZIP Co de Phone Number [facility] [address] [place], [place] [address] [place] [address] [place] [address] * HBc Total Ab , Serum (12/30/2024 12:07 PM CDT) Pathologist [facility] HBc Total Ab , S Negative Negative 12/30/2024 9:53 PM CDT [facility] Blood (Blood, Venous) 12/30/2024 12:07 PM CDT 12/30/2024 8:52 PM CDT Mayra Art APRN, C.N.P., M.S.N. LAB MICROBIO LOGY - BLOOD ORDERABLES Final Result Performing Organization Address City/[facility] Co de Phone Number [facility] [address] [place], [place] [phone] [place] [address] [place] [address] * HBs Antibody , Serum (12/30/2024 12:07 PM CDT) Pathologist [facility] HBs Antibody , S Negative 12/30/2024 4:56 [...] MICROBIO LOGY - BLOOD ORDERABLES Final Result [facility] [address] [place] [address], [facility] [place] [address] [place] [address] * HBs Antigen , Serum (12/30/2024 12:07 PM CDT) Pathologist [facility] HBs Antigen , S Negative Negative 12/30/2024 9:53 PM CDT [facility] Blood (Blood, Venous) 12/30/2024 12:07 PM CDT 12/30/2024 8:52 PM CDT Mayra Art APRN, C.N.P., M.S.N. LAB MICROBIO LOGY - BLOOD ORDERABLES Final Result Performing Organization Address [facility] Co de Phone Number [facility] [address] [place] [address] [facility] [address] [place] [address] * Hemoglobin Electrophoresis Evaluation (12/30/2024 12:07 PM CDT) Hb A 97.3 95.8 - 98.0 % 12/31/2024 2:46 PM CDT DTL Hb F 0.0 0.0 - 0.9 % 12/31/2024 2:46 PM CDT DTL Hb A2 2.7 2.0 - 3.3 % 12/31/2024 2:46 PM CDT [facility] Comment: ----ADDITIONAL INFORMATION---- This test has been modified from the podiatry teacher's instructions. Its performance characteristics were determined by [facility] in a manner consistent with CLIA requirements. This test has not been cleared or approved by the U.S. Food and Drug Administration. HPLC Hb Variant, B See Interpretation 12/31/2024 2:46 PM CDT DTL Comment: ----ADDITIONAL INFORMATION---- This test has been modified from the podiatry teacher's instructions. Its performance characteristics were determined by [facility] in a manner consistent with CLIA requirements. [...] If genotyping to assess for Hb Constant Spring is desired, please order [facility]/Alpha Globin Gene Sequencing, B. Additional sample required. Methodologies utilized in this interpretation include: capillary electrophoresis, HPLC. 12/31/2024 2:46 PM CDT DTL Blood (Blood, Venous) 12/30/2024 12:07 PM CDT 12/31/2024 7:20 AM CDT Fred Barnett APRNN.P., M.S.N. LAB BLOOD AD D-ON Final Result [facility] [address] [place] [address], [facility] DT [address] [place] [address] * Hemoglobin A1c (12/30/2024 12:07 PM CDT) Pathologist [facility] Hemoglobin A1c, B 5.3 4.2 - 5.6 % 12/30/2024 12:37 PM CDT [facility] Blood (Blood, Venous) 12/30/2024 12:07 PM CDT 12/30/2024 12:18 PM CDT us Mayra Art APRN, C.N.P., M.S.N. LAB BLOOD AD D-ON Final Result [facility] [address] [place] [address], [facility] NPRG [facility] [address] [place] [address] * CBC with Differential, Blood (12/30/2024 12:07 [...] Mayra Art APRN, C.N.P., M.S.N. LAB BLOOD AD D-ON Final Result [facility] [address] [place] [address], [facility] NPRG [address] [address] * Type and Screen (with Reflex Antibody [...] BLOOD BA NK TEST ORDERABLES Final Result Performing Organization Address City/[facility]/ZIP Co de Phone Number [facility] [address] [place] [address], [place] [facility] [place] [address] [place] [address] documented in this encounter Visit Diagnoses Diagnosis Examination Normal First Trimester (HCC) Multigravida Advanced Maternal Age Affecting Management (HCC) documented in this encounter Additional Health Concerns Assessment Noted Time PHQ-9 Depression Total Score: 5 12/31/19 25 1:49 PM CDT documented as of this encounter Care Teams Mushroom Cutter Relationship Specialty Start Date End Date None Reported, Pcp PCP - General Family Medicine 12/11/23 documented as of this encounter
--- OUTSIDE RECORDS SUMMARY | 2024-12-31 22:02 | XMS_ITS | Encounter Summary ---
Author Organization [facility] Address [address] [place] [address] Care Team Providers Care Eating Disorder Specialist Name Role Phone None Reported, Pcp Primary Care Provider Unavail able Encounter Details Date Type Department Care Team (Late st Contact Info) Description 01/06/2004 Historical Ophthalmology RST OPH Dilip Ledesma M.D. [address] [place] [phone] Social History Tobacco Use Types Packs/Day Years Used Date Smoking Tobacco: Never Assessed Comments Unknown Sex and Gender Information Value Date Recorded Sex Assigned at Female 06/27/2018 3:00 PM CRANE HOOKER Legal Sex Female 9:43 AM CRANE HOOKER Gender Identity Female 06/27/2018 3:00 PM CRANE HOOKER Sexual Orientation Straight 06/27/2018 3: 00 PM CRANE HOOKER documented as of this encounter Progress Notes * Dilip Ledesma M.D. - 01/06/2004 12:00 AM CDT Eye General CHIEF COMPLAINT recheck recurrent HSV keratitis right eye HISTORY OF PRESENT ILLNESS right eye comfortable. Denies dryness. . Finished 400 mg of acyclovir one week after last visit. Has not used since then as she misplaced her new rx. 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 Plan: Continue Acyclovir 800 bid, discussed prophylaxis and side effects. Do not breast feed or attempt conception while on this med. 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 CDM Reports - EYEGEN Id: [id number] Status: Fnl documented in this encounter Plan of Treatment Upcoming Encounters Date Type Department Care Team (Latest Contact Info) Description 01/27/2025 9:30 AM CDT Routine Department of Obstetrics and Gynecology in [place], [place] [address] [place] [phone] Mayra Art, SILAS, C.N.P., M.S.N. [address] [place] [phone] Discharge Disposition: Home or Self Care documented as of this encounter Visit Diagnoses Not on filedocumented in this encounter Additional Health Concerns Infection Onset Date Last Indicated Resolved Time COVID19 Pending 02/04/2020 02/04/2020 02/05/2020 6 :32 AM CDT COVID19 Pending 04/20/2020 04/20/2020 04/22/2020 9 :18 AM CRANE HOOKER COVID19 Pending 04/22/2020 04/22/2020 04/23/2020 2 :45 PM CRANE HOOKER COVID19 Pending 04/25/2020 04/25/2020 04/26/2020 2 :22 PM CRANE HOOKER COVID19 Pending 05/02/2021 05/02/2021 05/02/2021 1 0:49 AM CRANE HOOKER MRSA 03/11/2023 03/11/2023 06/09/2023 5:49 AM CRANE HOOKER documented as of this encounter Care Teams Eating Disorder Specialist Relationship Specialty Start Date End Date None Reported, Pcp PCP - General Family Medicine 12/11/23 documented as of this encounter
--- OUTSIDE RECORDS SUMMARY | 2024-12-31 22:02 | XMS_ITS | Encounter Summary ---
Author Organization [facility] Address [address] [place] [address] Care Team Providers Care Front Desk Administrator Name Role Phone None Reported, Pcp Primary Care Provider Unavail able Encounter Details Date Type Department Care Team (Late st Contact Info) Description 12/11/2003 Historical Ophthalmology RST OPH Dilip Ledesma M.D. [address] [place] [address] Social History Tobacco Use Types Packs/Day Years Used Date Smoking Tobacco: Never Assessed Comments Unknown Sex and Gender Information Value Date Recorded Sex Assigned at Female 06/27/2018 3:00 PM CALL CENTER DISPATCHER Legal Sex Female 9:43 AM CALL CENTER DISPATCHER Gender Identity Female 06/27/2018 3:00 PM CALL CENTER DISPATCHER Sexual Orientation Straight 06/27/2018 3: 00 PM CALL CENTER DISPATCHER documented as of this encounter Progress Notes * Dilip Ledesma M.D. - 12/11/2003 12:00 AM CDT Eye General CHIEF COMPLAINT recheck recurrent HSV keratitis OD HISTORY OF PRESENT ILLNESS Right eye feels dry, decr discomfort. Vision okay. 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 Plan: Continue Acyclovir 400mg PO 5 times/day. for one more wk, then 800 bid, discussed prophylaxisand side effects. Do not breast feed or attempt conception while on this med. 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 CDM Reports - EYEGEN Id: [id number] Status: Fnl documented in this encounter Plan of Treatment Upcoming Encounters Date Type Department Care Team (Latest Contact Info) Description 01/27/2025 9:30 AM CDT Routine Department of Obstetrics and Gynecology in [place], [place] [address] [place] [phone] Mayra Art, SILAS, C.N.P., M.S.N. [address] [place] [phone] Discharge Disposition: Home or Self Care documented as of this encounter Visit Diagnoses Not on filedocumented in this encounter Additional Health Concerns Infection Onset Date Last Indicated Resolved Time COVID19 Pending 02/04/2020 02/04/2020 02/05/2020 6 :32 AM CDT COVID19 Pending 04/20/2020 04/20/2020 04/22/2020 9 :18 AM CALL CENTER DISPATCHER COVID19 Pending 04/22/2020 04/22/2020 04/23/2020 2 :45 PM CALL CENTER DISPATCHER COVID19 Pending 04/25/2020 04/25/2020 04/26/2020 2 :22 PM CALL CENTER DISPATCHER COVID19 Pending 05/02/2021 05/02/2021 05/02/2021 1 0:49 AM CALL CENTER DISPATCHER MRSA 03/11/2023 03/11/2023 06/09/2023 5:49 AM CALL CENTER DISPATCHER documented as of this encounter Care Teams Front Desk Administrator Relationship Specialty Start Date End Date None Reported, Pcp PCP - General Family Medicine 12/11/23 documented as of this encounter
--- OUTSIDE RECORDS SUMMARY | 2024-12-31 22:02 | XMS_ITS | Encounter Summary ---
Author Organization [facility] Address [address] [place] [address] Care Team Providers Care Diploma Maker Name Role Phone None Reported, Pcp Primary Care Provider Unavail able Encounter Details Date Type Department Care Team (Late st Contact Info) Description 12/08/2003 Historical Ophthalmology RST OPH Jeovany Bertrand M.D. Social History Tobacco Use Types Packs/Day Years Used Date Smoking Tobacco: Never Assessed Comments Unknown Sex and Gender Information Value Date Recorded Sex Assigned at Female 06/27/2018 3:00 PM FIRE ALARM TECHNICIAN Legal Sex Female 9:43 AM FIRE ALARM TECHNICIAN Gender Identity Female 06/27/2018 3:00 PM FIRE ALARM TECHNICIAN Sexual Orientation Straight 06/27/2018 3: 00 PM FIRE ALARM TECHNICIAN documented as of this encounter Progress Notes * Jeovany Bertrand M.D. - 12/08/2003 12:00 AM CDT Eye General HISTORY OF PRESENT ILLNESS Patient got tongue pierced yesterday. Last night she had sensation of soreness OD, she described asfeeling of dry eye. This morning she awoke with OD red and crusted. She does not wear CL, she does not recall any recent trauma to the eye. She currently has URTI - has been on antibiotics for strep throat since Sunday. Otherwise no known contact with infectious conjunctivitis. IMPRESSION / REPORT / PLAN #1 Recurrent HSV keratitis OD. 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 Plan: Acyclovir 400mg PO 5 times/day. Follow-up: Sunday am or sooner prn. DIAGNOSIS #1 Recurrent HSV keratitis OD. 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 CDM Reports - EYEGEN Id: [id number] Status: Fnl documented in this encounter Plan of Treatment Upcoming Encounters Date Type Department Care Team (Latest Contact Info) Description 01/27/2025 9:30 AM CDT Routine Department of Obstetrics and Gynecology in [place], [place] [address] [place] [phone] Mayra Art, SILAS, C.N.P., M.S.N. [address] [place] [phone] Discharge Disposition: Home or Self Care documented as of this encounter Visit Diagnoses Not on filedocumented in this encounter Additional Health Concerns Infection Onset Date Last Indicated Resolved Time COVID19 Pending 02/04/2020 02/04/2020 02/05/2020 6 :32 AM CDT COVID19 Pending 04/20/2020 04/20/2020 04/22/2020 9 :18 AM FIRE ALARM TECHNICIAN COVID19 Pending 04/22/2020 04/22/2020 04/23/2020 2 :45 PM FIRE ALARM TECHNICIAN COVID19 Pending 04/25/2020 04/25/2020 04/26/2020 2 :22 PM FIRE ALARM TECHNICIAN COVID19 Pending 05/02/2021 05/02/2021 05/02/2021 1 0:49 AM FIRE ALARM TECHNICIAN MRSA 03/11/2023 03/11/2023 06/09/2023 5:49 AM FIRE ALARM TECHNICIAN documented as of this encounter Care Teams Diploma Maker Relationship Specialty Start Date End Date None Reported, Pcp PCP - General Family Medicine 12/11/23 documented as of this encounter
--- OUTSIDE RECORDS SUMMARY | 2024-12-31 22:02 | XMS_ITS | Encounter Summary ---
Author Organization [facility] Address [address] [place] [address] Care Team Providers Care Coal Cutter Name Role Phone None Reported, Pcp Primary Care Provider Unavail able Encounter Details Date Type Department Care Team (Late st Contact Info) Description 05/03/2005 Historical Ophthalmology RST OPH Dilip Ledesma M.D. [address] [place] [address] Social History Tobacco Use Types Packs/Day Years Used Date Smoking Tobacco: Never Assessed Comments Unknown Sex and Gender Information Value Date Recorded Sex Assigned at Female 06/27/2018 3:00 PM PRODUCE LABORER Legal Sex Female 9:43 AM PRODUCE LABORER Gender Identity Female 06/27/2018 3:00 PM PRODUCE LABORER Sexual Orientation Straight 06/27/2018 3: 00 PM PRODUCE LABORER documented as of this encounter Progress Notes * Dilip Ledesma M.D. - 05/03/2005 12:00 AM CST Eye General CHIEF COMPLAINT 16 month f/u recurrent HSV right eye, corneal scar and thinning right eye, history of uveitis righteye HISTORY OF PRESENT ILLNESS Patient gets cold sores in her nose a lot, this year about two weeks ago got cold sores on both sides of nose and that does not usually does not happen. Patient denies light flashes, floaters, or double vision. 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 Plan: Continue antiviral prophylaxis. disucssed in detail. BID dosing is a problem for her. Therefore reasonable to change to valacv 500 qd. increase to 1000 qd if sx recurr. recheck one year and prn. 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 CDM Reports - EYEGEN Id: [id number] Status: Fnl documented in this encounter Plan of Treatment Upcoming Encounters Date Type Department Care Team (Latest Contact Info) Description 01/27/2025 9:30 AM CDT Routine Department of Obstetrics and Gynecology in [place], [place] [address] [place] [phone] Mayra Art, SILAS, C.N.P., M.S.N. [address] [place] [phone] Discharge Disposition: Home or Self Care documented as of this encounter Visit Diagnoses Not on filedocumented in this encounter Additional Health Concerns Infection Onset Date Last Indicated Resolved Time COVID19 Pending 02/04/2020 02/04/2020 02/05/2020 6 :32 AM CDT COVID19 Pending 04/20/2020 04/20/2020 04/22/2020 9 :18 AM PRODUCE LABORER COVID19 Pending 04/22/2020 04/22/2020 04/23/2020 2 :45 PM PRODUCE LABORER COVID19 Pending 04/25/2020 04/25/2020 04/26/2020 2 :22 PM PRODUCE LABORER COVID19 Pending 05/02/2021 05/02/2021 05/02/2021 1 0:49 AM PRODUCE LABORER MRSA 03/11/2023 03/11/2023 06/09/2023 5:49 AM PRODUCE LABORER documented as of this encounter Care Teams Coal Cutter Relationship Specialty Start Date End Date None Reported, Pcp PCP - General Family Medicine 12/11/23 documented as of this encounter
--- OUTSIDE RECORDS SUMMARY | 2024-12-31 22:02 | XMS_ITS | Encounter Summary ---
Author Organization [facility] Address [address] [place] [address] Care Team Providers Care Quill Skinner Name Role Phone None Reported, Pcp Primary Care Provider Unavail able Encounter Details Date Type Department Care Team (Late st Contact Info) Description 02/20/2006 Historical Ophthalmology RST OPH Dilip Ledesma M.D. [address] [place] [address] Social History Tobacco Use Types Packs/Day Years Used Date Smoking Tobacco: Never Assessed Comments Unknown Sex and Gender Information Value Date Recorded Sex Assigned at Female 06/27/2018 3:00 PM PROJECT MANAGEMENT INTERN Legal Sex Female 9:43 AM PROJECT MANAGEMENT INTERN Gender Identity Female 06/27/2018 3:00 PM PROJECT MANAGEMENT INTERN Sexual Orientation Straight 06/27/2018 3: 00 PM PROJECT MANAGEMENT INTERN documented as of this encounter Progress Notes * Dilip Ledesma M.D. - 02/20/2006 12:00 AM CDT Eye General CHIEF COMPLAINT red pussy right eye HISTORY OF PRESENT ILLNESS woke up this morning to red, pussy right eye. notes puss is green. vision stable. sore. no increasein UV exposure. HAS NOT TAKEN ACV OR RIANNA-ACV FOR A WHILE' red eye protocol followed. 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 STOPPED PROPHYLAXIS. 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 Plan: RESTART VALTREX (THERAPEUTIC DOSE FOR NOW) 1 GM BID., VIROPTIC Q2WA FOR 2 WKS, MINIMAL WIPE DEBRIDEMENT, EES OINT BID FOR 3 D. 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 CDM Reports - EYEGEN Id: [id number] Status: Fnl documented in this encounter Plan of Treatment Upcoming Encounters Date Type Department Care Team (Latest Contact Info) Description 01/27/2025 9:30 AM CDT Routine Department of Obstetrics and Gynecology in [place], [place] [address] [place] [address] Mayra Art, SILAS, C.N.P., M.S.N. [address] [place] [phone] Discharge Disposition: Home or Self Care documented as of this encounter Visit Diagnoses Not on filedocumented in this encounter Additional Health Concerns Infection Onset Date Last Indicated Resolved Time COVID19 Pending 02/04/2020 02/04/2020 02/05/2020 6 :32 AM CDT COVID19 Pending 04/20/2020 04/20/2020 04/22/2020 9 :18 AM PROJECT MANAGEMENT INTERN COVID19 Pending 04/22/2020 04/22/2020 04/23/2020 2 :45 PM PROJECT MANAGEMENT INTERN COVID19 Pending 04/25/2020 04/25/2020 04/26/2020 2 :22 PM PROJECT MANAGEMENT INTERN COVID19 Pending 05/02/2021 05/02/2021 05/02/2021 1 0:49 AM PROJECT MANAGEMENT INTERN MRSA 03/11/2023 03/11/2023 06/09/2023 5:49 AM PROJECT MANAGEMENT INTERN documented as of this encounter Care Teams Quill Skinner Relationship Specialty Start Date End Date None Reported, Pcp PCP - General Family Medicine 12/11/23 documented as of this encounter
--- OUTSIDE RECORDS SUMMARY | 2024-12-31 22:02 | XMS_ITS | Encounter Summary ---
Author Organization [facility] Address [address] [place] [address] Care Team Providers Care Instrument Sterilizer Name Role Phone None Reported, Pcp Primary Care Provider Unavail able Encounter Details Date Type Department Care Team (Late st Contact Info) Description 10/19/2003 Historical Ophthalmology RST OPH Dilip Ledesma M.D. [address] [place] [address] Social History Tobacco Use Types Packs/Day Years Used Date Smoking Tobacco: Never Assessed Comments Unknown Sex and Gender Information Value Date Recorded Sex Assigned at Female 06/27/2018 3:00 PM CRIPPLE WORKER Legal Sex Female 9:43 AM CRIPPLE WORKER Gender Identity Female 06/27/2018 3:00 PM CRIPPLE WORKER Sexual Orientation Straight 06/27/2018 3: 00 PM CRIPPLE WORKER documented as of this encounter Progress Notes * Dilip Ledesma M.D. - 10/19/2003 12:00 AM CDT Eye General CHIEF COMPLAINT 3 year Recheck HSV keratitis HISTORY OF PRESENT ILLNESS Patient denies vision changes or problems. Eyes are comfortable. Denies flashes, floaters, or diplopia. Feels vision has improved significantly since giving 2 months ago. No flare-ups since last visit. no flares in years. feels vision is better od right after giving . IMPRESSION / REPORT / PLAN #1 History of HSV keratitis and uveitis OD. Quiet. Plan: Observe. Follow-up: 1 year or sooner prn. DIAGNOSIS #1 History of HSV keratitis and uveitis OD. [facility] Reports - EYEGEN Id: [id number] Status: Fnl documented in this encounter Plan of Treatment Upcoming Encounters Date Type Department Care Team (Latest Contact Info) Description 01/27/2025 9:30 AM CDT Routine Department of Obstetrics and Gynecology in [place], [place] [address] [place] [phone] Mayra Art, SILAS, C.N.P., M.S.N. [address] [place] [phone] Discharge Disposition: Home or Self Care documented as of this encounter Visit Diagnoses Not on filedocumented in this encounter Additional Health Concerns Infection Onset Date Last Indicated Resolved Time COVID19 Pending 02/04/2020 02/04/2020 02/05/2020 6 :32 AM CDT COVID19 Pending 04/20/2020 04/20/2020 04/22/2020 9 :18 AM CRIPPLE WORKER COVID19 Pending 04/22/2020 04/22/2020 04/23/2020 2 :45 PM CRIPPLE WORKER COVID19 Pending 04/25/2020 04/25/2020 04/26/2020 2 :22 PM CRIPPLE WORKER COVID19 Pending 05/02/2021 05/02/2021 05/02/2021 1 0:49 AM CRIPPLE WORKER MRSA 03/11/2023 03/11/2023 06/09/2023 5:49 AM CRIPPLE WORKER documented as of this encounter Care Teams Instrument Sterilizer Relationship Specialty Start Date End Date None Reported, Pcp PCP - General Family Medicine 12/11/23 documented as of this encounter
--- NOTE | 2024-12-31 22:03 | CRLHL7_ITS ---
For Patients: As a result of the Century Cures Act, medical imaging exams and procedure reports are released immediately into your electronic medical record. You may view this report before your referring provider. If you have questions, please contact your health care provider. INDICATION: Vaginal bleeding. LMP 10/07/2024. COMPARISON: None available. TECHNIQUE: Ultrasound OB pelvis transabdominal. Real-time hemphill-scale imaging of the pelvis was performed. FINDINGS: Sonographic imaging demonstrates a single living intrauterine gestation. The embryo has a regular cardiac rate measuring 171 beats per minute. The embryo`s crown-rump length measures 5.9 cm which corresponds to a gestational age of 12 weeks 3 days with sonographic due date 07/12/2025. The placenta is developing anteriorly. There is a 1.8 x 0.8 x 1.9 cm subchorionic hemorrhage in the upper uterus. The right ovary measures 2.9 x 2.2 x 2.6 cm and the left ovary measures 2.1 x 1.3 x 1.5 cm. Corpus luteal cyst in the right ovary. No free fluid in the pelvic cul-de-sac. IMPRESSION: 1. Single living intrauterine gestation corresponding to an ultrasound gestational age of 12 weeks 3 days with sonographic due date 07/12/2025. 2. The clinical gestational age by LMP is 12 weeks 1 day. 3. Small subchorionic hemorrhage. Dictated by Zelda Martinez MD @ 12/31/2024 11:33:21 PM (Electronically Signed)
--- OUTSIDE RECORDS SUMMARY | 2024-12-31 22:03 | XMS_ITS | Encounter Summary ---
Author Organization [facility] Address [address] [place] [address] Care Team Providers Care Special Education Tutor Name Role Phone None Reported, Pcp Primary Care Provider Unavail able Encounter Details Date Type Department Care Team (Late st Contact Info) Description 07/17/2007 Historical Ophthalmology RST OPH Dilip Ledesma M.D. [address] [place] [address] Social History Tobacco Use Types Packs/Day Years Used Date Smoking Tobacco: Never Assessed Comments Unknown Sex and Gender Information Value Date Recorded Sex Assigned at Female 06/27/2018 3:00 PM BANKING PARALEGAL Legal Sex Female 9:43 AM BANKING PARALEGAL Gender Identity Female 06/27/2018 3:00 PM BANKING PARALEGAL Sexual Orientation Straight 06/27/2018 3: 00 PM BANKING PARALEGAL documented as of this encounter Progress Notes * Dilip Ledesma M.D. - 07/17/2007 3:33 PM CST Eye General CHIEF COMPLAINT Recheck of HSV uveitis right eye. HISTORY OF PRESENT ILLNESS Patient states that the right eye has been ok.Patient denies ocular pain. She has had a cold for the last few days, felt dry, but seems fine with it. will dilate today since not done for a while. 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 Will start Valtrex 1gram BID x 1 week then back to prophylaxis dosing. Increase back to BID when under stress, colds or recurrent cold sores. Patient will call with any eye concerns. refill of Rx given. 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 [address] [place] [phone] Discharge Disposition: Home or Self Care documented as of this encounter Visit Diagnoses Not on filedocumented in this encounter Additional Health Concerns Infection Onset Date Last Indicated Resolved Time COVID19 Pending 02/04/2020 02/04/2020 02/05/2020 6 :32 AM CDT COVID19 Pending 04/20/2020 04/20/2020 04/22/2020 9 :18 AM BANKING PARALEGAL COVID19 Pending 04/22/2020 04/22/2020 04/23/2020 2 :45 PM BANKING PARALEGAL COVID19 Pending 04/25/2020 04/25/2020 04/26/2020 2 :22 PM BANKING PARALEGAL COVID19 Pending 05/02/2021 05/02/2021 05/02/2021 1 0:49 AM BANKING PARALEGAL MRSA 03/11/2023 03/11/2023 06/09/2023 5:49 AM BANKING PARALEGAL documented as of this encounter Care Teams Special Education Tutor Relationship Specialty Start Date End Date None Reported, Pcp PCP - General Family Medicine 12/11/23 documented as of this encounter
--- OUTSIDE RECORDS SUMMARY | 2024-12-31 22:03 | XMS_ITS | Encounter Summary ---
Author Organization [facility] Address [address] [place] [address] Care Team Providers Care Business Services Assistant Name Role Phone None Reported, Pcp Primary Care Provider Unavail able Encounter Details Date Type Department Care Team (Late st Contact Info) Description 03/16/2006 Historical Ophthalmology RST OPH Dilip Ledesma M.D. [address] [place] [address] Social History Tobacco Use Types Packs/Day Years Used Date Smoking Tobacco: Never Assessed Comments Unknown Sex and Gender Information Value Date Recorded Sex Assigned at Female 06/27/2018 3:00 PM COMBUSTION ENGINEER Legal Sex Female 9:43 AM COMBUSTION ENGINEER Gender Identity Female 06/27/2018 3:00 PM COMBUSTION ENGINEER Sexual Orientation Straight 06/27/2018 3: 00 PM COMBUSTION ENGINEER documented as of this encounter Progress Notes * Dilip Ledesma M.D. - 03/16/2006 12:00 AM CDT Eye General CHIEF COMPLAINT HSV follow up HISTORY OF PRESENT ILLNESS Right eye is much improved since Feb 20. 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 much better. off viroptic now. cont valtrex 100mg long-term. 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 CD Reports - EYEGEN Id: [id number] Status: Fnl documented in this encounter Plan of Treatment Upcoming Encounters Date Type Department Care Team (Latest Contact Info) Description 01/27/2025 9:30 AM CDT Routine Department of Obstetrics and Gynecology in [place], [place] [address] [place] [address] Mayra Art, SILAS, C.N.P., M.S.N. [address] [place] [phone] Discharge Disposition: Home or Self Care documented as of this encounter Visit Diagnoses Not on filedocumented in this encounter Additional Health Concerns Infection Onset Date Last Indicated Resolved Time COVID19 Pending 02/04/2020 02/04/2020 02/05/2020 6 :32 AM CDT COVID19 Pending 04/20/2020 04/20/2020 04/22/2020 9 :18 AM COMBUSTION ENGINEER COVID19 Pending 04/22/2020 04/22/2020 04/23/2020 2 :45 PM COMBUSTION ENGINEER COVID19 Pending 04/25/2020 04/25/2020 04/26/2020 2 :22 PM COMBUSTION ENGINEER COVID19 Pending 05/02/2021 05/02/2021 05/02/2021 1 0:49 AM COMBUSTION ENGINEER MRSA 03/11/2023 03/11/2023 06/09/2023 5:49 AM COMBUSTION ENGINEER documented as of this encounter Care Teams Business Services Assistant Relationship Specialty Start Date End Date None Reported, Pcp PCP - General Family Medicine 12/11/23 documented as of this encounter
--- OUTSIDE RECORDS SUMMARY | 2024-12-31 22:03 | XMS_ITS | Encounter Summary ---
Author Organization [facility] Address [address] [place] [address] Care Team Providers Care Electronic Semiconductor Processor Name Role Phone None Reported, Pcp Primary Care Provider Unavail able Reason for Visit * Reason Onset Date Comments Communication 11/06/2024 Confirmation of Encounter Details Date Type Department Care Team (Latest Contact Info) Description 11/06/2024 Clinical Communication Department of Obstetrics and Gynecology in [place], [place] [address] [place] [phone] Mayra Art, SILAS, C.N.P., M.S.N. [address] [place] [phone] Communication (Confirmation of ) Social History Tobacco Use Types Packs/Day Years Used Date Smoking Tobacco: Former Cigarettes 0 06/18/2000 - 05/18/2022 Smokeless Tobacco: Never Comments:curent vaping Alcohol Use Standard Drinks/Week Comments Yes 0 (1 standard drink = 0.6 oz pur e alcohol) occassionally [facility] Utilities Answer Date Recorded In [...] your living situation today? I have a [facility] place to live 02/07/2024 Education Answer Date Recorded What is the highest level of school you have completed or the highest degree you have received? 12th grade 03/05/2020 Comments No Sex and Gender Information Value Date Recorded Sex Assigned at Female 06/27/2018 3:00 PM PATTERNMAKER GRADER Legal Sex Female 9:43 AM PATTERNMAKER GRADER Gender Identity Female 06/27/2018 3:00 PM PATTERNMAKER GRADER Sexual Orientation Straight 06/27/2018 3: 00 PM PATTERNMAKER GRADER documented as of this encounter Plan of Treatment Upcoming Encounters Date Type Department Care Team (Latest Contact Info) Description 01/27/2025 9:30 AM CDT Routine Department of Obstetrics and Gynecology in [place], [place] [address] [place] [phone] Mayra Art, SILAS, C.N.P., M.S.N. [address] [place] [phone] Discharge Disposition: Home or Self Care documented as of this encounter Visit Diagnoses Not on filedocumented in this encounter Additional Health Concerns Assessment Noted Time PHQ-9 Depression Total Score: 2 02/07/20 24 12:31 PM CDT documented as of this encounter Care Teams Electronic Semiconductor Processor Relationship Specialty Start Date End Date None Reported, Pcp PCP - General Family Medicine 12/11/23 documented as of this encounter
--- OUTSIDE RECORDS SUMMARY | 2024-12-31 22:03 | XMS_ITS | Clinical Summary ---
Author Organization [facility] Address [address] [place] [address] Care Team Providers Care Construction Flagger Name Role Phone None Reported, Pcp Primary Care Provider Unavail able Source Comments Patient records contain information from all sites at [facility]. For routine questions regarding patient records, call [phone] during business hours, M-F 8:00 AM - 5:00 PM Central Time. Record requests for emergency care only can be directed to [phone] at any time.[facility] Allergies Active Allergy Reactions Criticality Noted Date Comments Pollen Extracts Other (see comments) 03/03/2021 Runny nose, itchy eyes Medications * This document contains information received from the source organization and may not represent a complete record from that organization. acetaminophen (TYLENOL) 500 mg tablet Take 2 tablets (1,000 mg total) by mouth every 6 (six) hours as needed for pain (alternate with ibuprofen every 3 hours. Do not exceed 4000 mg or 4 g in 24 hours.). 30 tablet 05/03/20 21 Active hydrOXYzine (ATARAX) 25 mg tablet Take 1 tablet (25 mg total) by mouth every 8 (eight) hours as needed for anxiety. 30 tablet 5 10/29/19 24 Active traZODone (DesyreL) 50 mg tablet Take 1 tablet (50 mg total) by mouth at bedtime as needed for sleep. 30 tablet 11 02/07/20 24 Active Additional Information Patient not taking.Reason: not needing, Reported on 12/30/2024 [id number] n-FA 27 mg iron- 1 mg tablet Take 1 tablet by mouth daily. Active nicotine (NicotroL NS) 10 mg/mL nasal sprayIndicatio ns:Examination Normal First Trimester (HCC) Use 1 spray in each nostril every 1 to 2 hours or as needed for tobacco withdrawal symptoms. Not to exceed 40 doses (80 sprays) per day 10 mL 2 12/31/19 25 Active ibuprofen (ADVIL,MOTRIN) 200 mg tablet Take 3 tablets (600 mg total) by mouth every 6 (six) hours as needed for pain (Alternate with acetaminophen every 3 hours). 30 tablet 05/03/20 21 025 Discontin ued(Thera py completed ) FLUoxetine (PROzac) 20 mg capsule Take 1 capsule (20 mg total) by mouth daily. 90 capsule 3 09/26/19 25 025 Discontin ued(Pregn ham) triamcinolone (Kenalog) 0.025 % ointmentIndica tions:Cheiliti s Angular Apply 1 Application topically 2 (two) times a day. Apply to affected area twice daily for up to 2 weeks. 30 g 10/01/19 25 025 Discontin ued(Thera py completed ) semaglutide (Wegovy) 0.5 mg/0.5 mL pen injector injectionIndic ations:Overwei ght Body Mass Index 25-29.9 Adult Inject 0.5 mg under the skin every 7 (seven) days. 2 mL 10/01/19 25 025 Discontin ued(Pregn ham) nicotine (NicotroL NS) 10 mg/mL nasal spray Use 1 spray in each nostril every 1 to 2 hours or as needed for tobacco withdrawal symptoms. 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 Orders: Lipid Panel; Future Overweight Body Mass Index 25-29.9 Adult 025 Assessment & Plan (08/26/2024 11:43 AM CDT): BMI 28, overweight. 7-pound weight loss with high-protein, low-carb diet and exercise. Phentermine ineffective. Discussed Wegovy, insurance may not cover due to BMI <30. Emphasized FDA-approved medications. - Send prescription for Wegovy to pharmacy for prior authorization. - Advise her to contact insurance for coverage criteria. - Encourage continuation of current diet and exercise regimen. Orders: semaglutide (Wegovy) 0.25 mg/0.5 mL pen injector injection; Inject 0.25 mg under the skin every 7 (seven) days. Cancer Breast Family History 06/07/2019 Assessment & Plan (06/07/2019 5:16 AM CARE COORDINATION MANAGER): She mentioned that she had a paternal grandmother had breast cancer at an early age. She did not believe that she had any genetic testing done. Father has no signs or symptoms of breast cancer. She is curious if she should have further testing done. Recommend that she go be seen by our genomics specalist to discuss risks and benefits of further screening. Anxiety Generalized Disorder 03/26/2019 Overview (06/07/2019): Lexapro 10 mg working well Assessment & Plan (06/07/2019 5:17 AM CARE COORDINATION MANAGER): She is currently on Lexapro 10 mg and feels like it's a good medication for her. She does note intermittent bouts of nausea especially in the morning. She takes this pill on empty stomach and recommended that she trial taking it with food since she did not want to switch medications at this time. This is a common side effect this medication. Dependence Nicotine 04/28/2010 Overview (06/06/2019): 06/27/2017- providing Wellbutrin and nicotine inhaler 06/06/2019-has nicotine inhaler wishes start patch Assessment & Plan (06/07/2019 4:59 AM CARE COORDINATION MANAGER): She wishes to discontinues sooner L. We previously discussed medications she Wellbutrin and [place] quit plan at a previous. She wished to trial a patch that she previously had wall being hospitalized. She stated she smoked anywhere between 7 and 15 cigarettes. We elected to trial the 14 mg patch with instructions to decrease the dose if she felt nauseous or uneasy. Also if she started developed lucid dreams to remove the patch before going to bed which she did in the hospital. Assessment & Plan (04/17/2019 6:28 AM CDT): She feels like her Wellbutrin was causing issues with her mood so she discontinued it. She did trial a patch while hospitalized and felt like that helped with some of her symptoms. Recommending she continue on the patch and remove it at night to minimize the side effects. Also still has a nicotine inhaler which she feels helps with those sudden urges. Also recommended [place] quit plan if she is concerned about coverage. Assessment & Plan (06/27/2018 5:30 PM CARE COORDINATION MANAGER): Patient has roughly 15 pack year history of smoking. She desires to quit as soon as possible. She does have multiple run who do smoke and I encouraged her to send the them for also smoking cessation if they are willing. We discussed multiple options and you shared decision-making come with this plan. Recommending that she start on Wellbutrin SR 150 mg BID and nicotine inhaler. Patient was comfortable this plan and all questions were answered. 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 Colposcopy biopsy = SILVIA-3. LEEP in 2020. Needs 3 annual HPV-based tests in a row that are negative and then may go to surveillance every 3 years (Pap/HPV co-test or Primary HPV with Pap reflex) Coping Ineffective Estimated Date of Delivery Comme nts Yes 07/14/2025 Based on last me nstrual period of 10/07/2024 Resolved Problems Problem Noted Date Diagnosed Date Resolved Date Pap Smear Examination 06/07/20192022 Overview (03/30/2020): CIN1 in 2013 Assessment & Plan (06/07/2019 5:01 AM CARE COORDINATION MANAGER): Patient currently menstruating and does not wish to have her Pap done today. Plan to reschedule for future appointment. 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 During hospitalization as well as after few feels like her mood as well as her anxiety/depression has improved and is not currently homicidal or suicidal. She does not wish to continue the trazodone due to its side effect of continued drowsiness throughout the day. She feels like the Atarax may be beneficial and wishes to transition to taking that 1 pill at night in addition to melatonin. She feels like her Lexapro is helping her with her mood stabilization. Recommend a one-month follow-up to assess her mood as well as any general medical issues she needs to have addressed. Impaired Glucose Tolerance 01/18/2012 0 06/22/2023 Overview (06/07/2019): Family history diabetes and gestational diabetes personal Assessment & Plan (06/07/2019 5:18 AM CARE COORDINATION MANAGER): She previously had a glucose level of 151 in the hospital we were reassured that was now 103. We discussed diet as well as exercise and made recommendations and continue to monitor going forward. She does have family history of diabetes as well as gestational diabetes with her previous . Encounters Date Type Department Care Team Description 12/31/2024 Clinical Communication Department of Obstetrics and Gynecology in [place] [address] [place] [phone] Mayra Art, SILAS, C.N.P., M.S.N. Nurse Assessment 12/30/2024 12:01 PM CDT - 12/30/2024 11:59 PM CDT Hospital Encounter Department of Laboratory Medicine in [address] [phone] Mayra Art APRN, C.N.P., M.S.N. Examination Normal First Trimester (HCC); Multigravida Advanced Maternal Age Affecting Management (HCC) Discharge Disposition: Home or Self Care 12/30/2024 10:30 AM CDT Initial Department of Obstetrics and Gynecology in [address] [phone] Mayra Art APRN, C.N.P., M.S.N. GA: 12w0d Discharge Disposition: Home or Self Care 12/30/2024 Results Follow-Up Department of Obstetrics and Gynecology in [address] [phone] Mayra Art APRN, C.N.Sheri, M.S.N. Type and Screen (with Reflex Antibody ID), CBC with Differential, Blood, Hemoglobin A1c, Testing Location 12/03/2024 Results Follow-Up Department of Obstetrics and Gynecology in [address] [phone] Perlita Villanueva CNM US OB First Trimester and Transvaginal 12/02/2024 10:45 AM CDT Office Visit Department of Obstetrics and Gynecology in [address] [phone] Mayra Art APRN, C.N.PKaci, M.S.N. Examination Normal First Trimester (HCC) (Primary Dx) Discharge Disposition: Home or Self Care 12/01/2024 3:31 PM CDT - 12/01/2024 11:59 PM CDT Hospital Encounter Department of Radiology in [address] [phone] Perlita Villanueva CNM Examination Normal First First Trimester (HCC) Discharge Disposition: Home or Self Care 11/11/2024 Orders Only Department of Obstetrics and Gynecology in [place], [place] [address] [place] [phone] Perlita Villanueva CNM Examination Normal First First Trimester (HCC) (Primary Dx) 11/06/2024 Clinical Communication Department of Obstetrics and Gynecology in [place], [place] [address] [place] [phone] Mayra Art, SILAS, C.N.P., M.S.N. Communication (Confirmation of ) from Last 3 Months Immunizations Immunization Administration Dates Next Due 4vHPV (discontinued) 08/11/2010 9vHPV 03/29/2021 Influenza Split 04/11/2009 Influenza, Quadrivalent, Adj uvanted, Preservative Free 04/11/2021 Influenza, Seasonal, Injectable 06/10/2003 Influenza, Unspecified 04/09/2017 MMR 01/26/2017,04/18/1987 PPSV23 06/06/2019(Deferred: Patient Ref used) Rho (D) Immune Globulin (IM only) 03/27/2012, Tdap 03/03/2021,01/06/2010 FARHANA 01/26/2017 influenza trivalent vaccine (6 months and older)(PF) 04/11/2009 influenza vaccine quad (FLUZONE/FLUARIX) (6 months and older)(PF) 04/14/2019,06/27/2018(Deferred: Patient Refused) Family History Medical History Relation Name Comments Breast cancer Maternal Grandmother Yady dixon Later in life Kidney disease Mother 2 Arnoldo parra Prediabetes Mother 2 Arnoldo parra Breast cancer Other Paternal side Diabetes Other Breast cancer Paternal Grandmother Caroline tom Relation Name Status Comments Maternal Grandmother Yady dixon Mother 1 Arnoldo bacter Mother 2 Arnoldo parra Other Paternal Grandmother Caroline tom Social History Tobacco Use Types Packs/Day Years Used Date Smoking Tobacco: Former Cigarettes 0 06/18/2000 - 05/18/2022 Smokeless Tobacco: Never Tobacco Cessation:Counseling Given: Not Answered Comments:curent vaping Alcohol Use Standard Drinks/Week Comments Not Currently 0 (1 standard drink = 0.6 oz pur e alcohol) occassionally [facility] Utilities Answer Date Recorded In the past 12 months has th e electric, gas, oil, or water company [...] your living situation today? I have a [facility] place to live 02/07/2024 Education Answer Date Recorded What is the highest level of school you have completed or the highest degree you have received? 12th grade 03/05/2020 Estimated Date of Delivery Comme nts Yes 07/14/2025 Based on last me nstrual period of 10/07/2024 Sex and Gender Information Value Date Recorded Sex Assigned at Female 06/27/2018 3:00 PM CARE COORDINATION MANAGER Legal Sex Female 9:43 AM CARE COORDINATION MANAGER Gender Identity Female 06/27/2018 3:00 PM CARE COORDINATION MANAGER Sexual Orientation Straight 06/27/2018 3: 00 PM CARE COORDINATION MANAGER Last Filed Vital Signs Vital Sign Reading Time Taken Comments Blood Pressure 99/65 12/30/2024 10:53 AM CDT Pulse 84 12/30/2024 10:53 AM CDT Temperature 36.8 C (98.2 F) 12/30/2024 10:53 AM CDT Respiratory Rate 19 08/26/2024 10:57 AM CDT Oxygen Saturation 99% 08/26/2024 10:57 AM CDT Inhaled Oxygen Concentration - - Weight 69.1 kg (152 lb 6.4 oz) 12/30/2024 10:53 AM CDT Height 156 cm (5' 1.42) 12/02/2024 10:26 AM CDT Body Mass Index 28.41 12/02/2024 10:26 AM CDT Plan of Treatment Upcoming Encounters Date Type Department Care Team (Latest Contact Info) Description 01/27/2025 9:30 AM CDT Routine Department of Obstetrics and Gynecology in [place], [place] [address] [place] [phone] Mayra Art, SILAS, C.N.P., M.S.N. [address] [place] [phone] Discharge Disposition: Home or Self Care Health Maintenance Due Date Last Done Comments Hepatitis B Vaccines (1 of 3 - 19+ 3-dose series) 2004 HPV Vaccines (3 - 3-dose series) 06/21/2021 03/29/2021, 08/11/2010 COVID-19 Vaccine (3 - 2023- season) 2024 06/20/2021, 05/18/2021 Influenza Vaccine (#1) 2025 , 04/14/2019, 04/09/2017, Additional history exists Tdap vaccine - (27-36 weeks) (1 - Tdap) 04/14/2025 03/03/2021, 01/06/2010 RSV vaccine - (32-36 weeks) or 60+ years (1 - Risk 1-dose series) 05/19/2025 Cervical/Vaginal Cancer Screening 08/26/2025 08/26/2024, 08/26/2024, 10/04/2022, Additional history exists Lipid (Cholesterol) Screening 08/26/2025 08/26/2024, 11/27/2022, 11/23/2021 DTaP,Tdap,and Td Vaccines (3 - Td or Tdap) 03/03/2031 03/03/2021, 01/06/2010 MMR Vaccines Completed 01/26/2017, 04/18/1987 Depression Screening (Annual PHQ-2) Completed 12/30/2024, 08/26/2024 HIV Screening Completed 12/30/2024, 03/29/2021 Hepatitis C Screening Completed 12/30/2024 IPV Vaccines Aged Out No longer eligi ble based on patient's age to complete this topic Pneumococcal vaccine (0-49 years) Aged Out No longer eligible based on patient's age to complete this topic Procedures Procedure Name Priority Date/Time Associated Diagnosis Comments TESTING LOCATION Routine 12/30/2024 12:07 PM CDT HEMOGLOBIN ELECTROPHORESIS CASCADE, B Routine 12/30/2024 12:07 PM CDT Examination Normal First Trimester (HCC) HEMOGLOBIN A1C, B Routine 12/30/2024 12:07 PM CDT Examination [...] First Trimester (HCC) RUBELLA ANTIBODIES, IGG Routine 12/30/2024 12:07 PM CDT Examination Normal First Trimester (HCC) HIV-1/-2 AG AND AB SCRN, PLASMA Routine 12/30/2024 12:07 PM CDT Examination Normal First Trimester (HCC) HCV AB SCRN , S Routine 12/30/2024 12:07 PM CDT Examination Normal First Trimester (HCC) HBC TOTAL AB , S Routine 12/30/2024 12:07 PM CDT Examination Normal First Trimester (HCC) HBS ANTIBODY , S Routine 12/30/2024 12:07 PM CDT Examination Normal First Trimester (HCC) HBS ANTIGEN , S Routine 12/30/2024 12:07 PM CDT Examination Normal First Trimester (HCC) URINALYSIS WITH MICROSCOPIC IF INDICATED, U Routine 12/30/2024 11:57 AM CDT Examination Normal First Trimester (HCC) CHLAMYDIA/GONORRHOEAE AMPLIFIED RNA Routine 12/30/2024 11:57 AM CDT Examination Normal First Trimester (HCC) BACTERIAL CULTURE, AEROBIC + SUSC, URINE Routine 12/30/2024 11:57 AM CDT Examination Normal First Trimester (HCC) US OB FIRST TRIMESTER AND TRANSVAGINAL RAD - Routine (most inpatients and all outpatients) 12/01/2024 4:29 PM CDT Examination Normal First First Trimester (HCC) LIPID PANEL, S Routine 08/26/2024 11:50 AM CDT Hyperlipidemia Mixed HPV WITH GENOTYPING, PCR, THINPREP Routine 08/26/2024 11:43 AM CDT from Last 3 Months or Most Recently Relevant to Health Maintenance Results * HBc Total Ab , Serum (12/30/2024 12:07 PM CDT) HBc Total Ab , S Negative Negative 12/30/2024 9:53 PM CDT [facility] Blood (Blood, Venous) 12/30/2024 12:07 PM CDT 12/30/2024 8:52 PM CDT Mayra Art APRN, C.N.P., M.S.N. LAB MICROBIO LOGY - BLOOD ORDERABLES Final Result [facility] [address] [place] [address] [facility] [address] [place] [address] * HBs Antibody , Serum (12/30/2024 12:07 [...] 12:07 PM CDT 12/30/2024 4:30 PM CDT Fred Barnett APRNNDevika., M.S.N. LAB MICROBIO LOGY - BLOOD ORDERABLES Final Result [facility] [address] [place] [address], [facility] MKTO [facility] in [place] [address] [place] [address] * Hepatitis C Virus Antibody Screen (12/30/2024 12:07 PM CDT) HCV Ab Scrn , S Negative Negative 12/30/2024 9:53 PM CDT [facility] Comment: Consumption of high-dose biotin supplement within 12 hours of blood collection for this test can cause false-negative results. Blood (Blood, Venous) 12/30/2024 12:07 PM CDT 12/30/2024 8:52 PM CDT Fred Barnett APRNNDevika., M.S.N. LAB MICROBIO LOGY - BLOOD ORDERABLES Final Result [facility] [address] [place] [address] [facility] [address] [place] [address] * Testing Location (12/30/2024 12:07 PM CDT) Testing Location [facility] DEFAULT 12/30/2024 12:19 PM CDT [facility] Blood 12/30/2024 12:0 7 PM CDT 12/30/2024 12:18 PM CDT us Fred Barnett APRNNDevika., M.S.N. LAB BLOOD BA NK TEST ORDERABLES Final Result [facility] [address] [place] [address], [place] NPRG [facility] [address] [place] [address] * HIV-1/-2 Ag and Ab Scrn, Plasma (12/30/2024 12:07 PM CDT) HIV Ag/Ab Scrn, P Negative Negative 12/30/2024 4:17 PM CDT [facility] Comment: Negative result does not rule out [...] MICROBIO LOGY - BLOOD ORDERABLES Final Result [facility] [address] [place] [address], [facility] in [address] [address] * Syphilis Total Antibody with Reflex, S ([facility]/ARZ) (12/30/2024 12:07 PM CDT) Syphilis Total Ab w/ Reflex Nonreactive Nonreactive 12/31/2024 11:53 AM CDT [facility] Comment: No serologic evidence of infection with T. pallidum (syphilis). Repeat testing may be considered in patients with suspected acute or primary syphilis in 2-4 weeks. For additional information on interpretation of the syphilis reverse algorithm and results, see: [email or web address] Blood (Blood, Venous) 12/30/2024 12:07 PM CDT 12/30/2024 7:31 PM CDT Mayra Art APRN, C.N.P., M.S.N. LAB BLOOD AD D-ON Final Result [facility] [address] [place] [id number], [facility] in [address] [address] * HBs Antigen , Serum (12/30/2024 12:07 PM CDT) HBs Antigen , S Negative Negative 12/30/2024 9:53 PM CDT [facility] Blood (Blood, Venous) 12/30/2024 12:07 PM CDT 12/30/2024 8:52 PM CDT Mayra Art APRN, C.N.P., M.S.N. LAB MICROBIO LOGY - BLOOD ORDERABLES Final Result Performing Organization Address City/[facility]/ZIP Co de Phone Number [facility] [address] [place] [address] [place] [address] * Hemoglobin Electrophoresis Evaluation (12/30/2024 12:07 PM CDT) Hb A 97.3 95.8 - 98.0 % 12/31/2024 2:46 PM CDT DTL Hb F 0.0 0.0 - 0.9 % 12/31/2024 2:46 PM CDT DTL Hb A2 2.7 2.0 - 3.3 % 12/31/2024 2:46 PM CDT DTL Comment: ----ADDITIONAL INFORMATION---- This test has been modified from the high school physical education teacher's instructions. Its performance characteristics were determined by [facility] in a manner consistent with CLIA requirements. This test has not been cleared or approved by the U.S. Food and Drug Administration. HPLC Hb Variant, B See Interpretation 12/31/2024 2:46 PM CDT DTL Comment: ----ADDITIONAL INFORMATION---- This test has been modified from the high school physical education teacher's instructions. Its performance characteristics were determined by [facility] in a manner consistent with CLIA [...] 12:07 PM CDT 12/31/2024 7:20 AM CDT Mayra Art APRN C.N.P., M.S.N. LAB BLOOD AD D-ON Final Result [facility] [address] [place] [address], [facility] DT [address] [place] [address] * Rubella Antibodies, IgG (12/30/2024 12:07 PM [...] MICROBIO LOGY - BLOOD ORDERABLES Final Result [facility] [address] [place] [address], [facility] in [address] [address] * CBC with Differential, Blood (12/30/2024 12:07 [...] AD D-ON Final Result Performing Organization Address City/[facility]/ZIP Co de Phone Number [facility] [address] [place] [address], [facility] NPRG [address] [address] * Type and Screen (with Reflex Antibody [...] PM CDT 12/30/2024 12:18 PM CDT us Fred Barnett APRNNDevika., M.S.N. LAB BLOOD BA NK TEST ORDERABLES Final Result Performing Organization Address City/[facility]/ZIP Co de Phone Number [facility] [address] [place] [address], [facility] NPRG [place] [address] [place] [address] * Varicella-Zoster Antibody, IgG, Serum (12/30/2024 12:07 [...] 12/30/2024 7:31 PM CDT Mayra Art APRN, Mari.N.P., M.S.N. LAB MICROBIO LOGY - BLOOD ORDERABLES Final Result [facility] [address] [place] [address], [facility] in [address] [address] * Hemoglobin A1c (12/30/2024 12:07 PM CDT) Pathologist [facility] Hemoglobin A1c, B 5.3 4.2 - 5.6 % 12/30/2024 12:37 PM CDT NPR Blood (Blood, Venous) 12/30/2024 12:07 PM CDT 12/30/2024 12:18 PM CDT Mayra Art APRN, C.N.P., M.S.N. LAB BLOOD AD D-ON Final Result [facility] [address] [place] [address], [place] NPR[facility] [address] [place] [address] * Urinalysis with Microscopic if Indicated: Urine, [...] 8.0 12/30/2024 12:04 PM CDT NPRG Specific [place] <=1.005 1.001 - 1.035 12/30/2024 12:04 PM CDT NPRG Urobilinogen 0.2 0.2 - 1.0 mg/dL 12/30/2024 12:04 PM CDT NPRG Urine (Urine, Midstream) 12/30/2024 11:57 AM CDT 12/30/2024 11:59 AM CDT us Mayra Art APRN C.N.P., M.S.N. LAB URINE OR DERABLES Final Result [facility] [address] [place] [address], [place] NPRG [facility] [address] [place] [address] * Bacterial Culture, Aerobic + Susceptibility, Urine (12/30/2024 11:57 AM CDT) Urine Culture Urogenital microbiota, susceptibilities not performed per laboratory criteria. 12/31/2024 8:15 AM CDT MKTO Urine (Urine, Midstream) 12/30/2024 11:57 AM CDT 12/30/2024 2:05 PM CDT Comment:Specimen Source Site : Urine us Mayra Art APRN, C.N.P., M.S.N. LAB MICROBIOLOGY - GENERAL ORDERABLES Final Result Performing Organization Address City/[facility]/RUST Co de Phone Number [facility] [address] [place] [address], [facility] MKTO [facility] in [place] [address] [place] [address] * Chlamydia / Gonorrhoeae Amplified RNA (12/30/2024 11:57 AM CDT) Source Swab, Vagina 12/31/2024 2:03 AM CDT MKTO Chlamydia trachomatis amplified RNA Negative Negative 12/31/2024 2:03 AM CDT MKTO Source Swab, Vagina 12/31/2024 2:03 AM CDT MKTO Neisseria gonorrhoeae amplified RNA Negative Negative 12/31/2024 2:03 AM CDT MKTO Swab (Vagina) 12/30/2024 11: 57 AM CDT 12/30/2024 2:05 PM CDT us Fred Barnett APRNNDevika., M.S.N. LAB MICROBIOLOGY - GENERAL ORDERABLES Final Result Performing Organization Address City/[facility] Co de Phone Number [facility] [address] [place] [address], [facility] MKTO [address] [place] [address] * US OB First Trimester and Transvaginal [...] 6 d, ALEXIS: 07/14/2025 INTRAUTERINE Embryo: Normal, Wagner-Rump Length: 13.0 mm Gestational Sac: Normal Yolk [...] w 6 d, ALEXIS:07/14/2025 INTRAUTERINE Embryo: Normal, Wagner-Rump Length: 13.0 mm Gestational Sac: Normal Yolk [...] an ALEXIS of 07/16/2025. us Perlita Villanueva CNM IMG OB US PROCEDURES Final Resul t * (ABNORMAL) Lipid Panel (08/26/2024 11:50 AM CDT) Triglycerides 248(H) mg/dL 08/26/2024 2:05 PM CDT NPRG Comment: ----REFERENCE VALUE---- Normal: <150 mg/dL Borderline High: 150-199 mg/dL High: 200-499 mg/dL Very High: > or =500 mg/dL Cholesterol, Total 267(H) mg/dL 2024 2:05 PM CDT NPRG Comment: ----REFERENCE VALUE---- Desirable: < 200 mg/dL Borderline High: 200 - 239 mg/dL High: > or = 240 mg/dL Cholesterol, LDL, Calculated 164(H) mg/dL 08/26/2024 2:05 PM CDT NPRG Comment: ----REFERENCE VALUE---- Desirable: <100 mg/dL Above Desirable: 100-129 mg/dL Borderline High: 130-159 mg/dL High: 160-189 mg/dL Very High: >=190 mg/dL ----ADDITIONAL INFORMATION---- LDL cholesterol calculated using the Diaz/NIH equation. Cholesterol, HDL 57 >=50 mg/dL 08/27/19 25 2:05 PM CDT NPRG Cholesterol, Non-HDL, Calculated 210(H) mg/dL 08/26/2024 2:05 PM CDT NPRG Comment: ----REFERENCE VALUE---- Desirable: <130 mg/dL Above Desirable: 130-159 mg/dL Borderline High: 160-189 mg/dL High: 190-219 mg/dL Very High: > or =220 mg/dL Fasting (8 HR or more) No 08/26/2024 11:50 AM CDT NPRG Blood (Blood, Venous) 08/26/2024 11:50 AM CDT 08/26/2024 1:48 PM CDT us Isaiah Brice M.D. LAB BLOOD ADD-ON Final Result [facility] [address] [place] [address], [place] NPRG [facility] [address] [place] [address] * HPV with Genotyping, PCR, ThinPrep (08/26/2024 11:43 AM CDT) HPV with Genotyping, ThinPrep, PCR Negative Negative 08/27/2024 3:59 PM CDT MKTO Comment: Negative for high risk HPV by nucleic acid amplification. The following high risk HPV types were not detected: 16, 18, 31, 33, 35, 39, 45, 51, 52, 56, 58, 59, 66, and 68 This result does not rule out HPV in the patient, as the sensitivity of the test depends on the timing of the specimen collection and the quality of the specimen. Result should be correlated with patient's history, clinical presentation, and PILE DRIVER OPERATOR [place] cytology report. 08/26/2024 11:4 3 AM CDT 08/27/2024 7:19 AM CDT Isaiah Brice M.D. LAB MICROBIOLOGY - GENERAL ORDER VARINDER Final Result [facility] [address] [place] [address], [facility] MKTO [facility] [address] from Last 3 Months or Most Recently Relevant to Health Maintenance Insurance [facility] Advance Directives For more information, please contact: [phone] * Full Code (Latest Code Status on File) Date Activated Date Inactivated Comments 03/26/2019 9:00 AM 03/29/2019 12:37 PM Question Answer Comments Full Code: Not Discussed Due to: Not medically appropriate Care Teams Construction Flagger Relationship Specialty Start Date End Date None Reported, Pcp PCP - General Family Medicine 12/11/23
--- OUTSIDE RECORDS SUMMARY | 2024-12-31 22:03 | XMS_ITS | Encounter Summary ---
Author Organization [facility] Address [address] [place] [address] Care Team Providers Care Exploitation Analyst Name Role Phone None Reported, Pcp Primary Care Provider Unavail able Encounter Details Date Type Department Care Team (Late st Contact Info) Description 05/30/2007 Historical Ophthalmology RST OPH Jj Birmingham M.D., Ph.D. [address] [place] [phone] (Work) Social History Tobacco Use Types Packs/Day Years Used Date Smoking Tobacco: Never Assessed Comments Unknown Sex and Gender Information Value Date Recorded Sex Assigned at Female 06/27/2018 3:00 PM DISTRICT HOME ECONOMICS AGENT Legal Sex Female 9:43 AM DISTRICT HOME ECONOMICS AGENT Gender Identity Female 06/27/2018 3:00 PM DISTRICT HOME ECONOMICS AGENT Sexual Orientation Straight 06/27/2018 3: 00 PM DISTRICT HOME ECONOMICS AGENT documented as of this encounter Progress Notes * Jj Birmingham M.D., Ph.D. - 05/30/2007 1:04 PM CST Eye General CHIEF COMPLAINT Red eye HISTORY OF PRESENT ILLNESS Red, burning started this morning. Photophobia. No discharge. No change in vision. Pt and son currently getting over a cold. No contacts with anyone with red eyes. Takes Valtrex chronically, but often does not remember to take it. Took 3 times last week and 1 dose today. IMPRESSION / REPORT / PLAN #1 Recurrent HSV keratitis OD No sign of active disease today, but symptoms are consistent with a flare. Will begin full dose Valtrex - 1gm BID and Viroptic, 1gtt, right eye 6 times daily. RTC 1 week. 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 Seen with Dr. Ledesma. 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 CDM Reports - EYEGEN Id: [id number] Status: Fnl documented in this encounter Plan of Treatment Upcoming Encounters Date Type Department Care Team (Latest Contact Info) Description 01/27/2025 9:30 AM CDT Routine Department of Obstetrics and Gynecology in [place], [place] [address] [place] [phone] Mayra Art, SILAS, C.N.P., M.S.N. [address] [place] [phone] Discharge Disposition: Home or Self Care documented as of this encounter Visit Diagnoses Not on filedocumented in this encounter Additional Health Concerns Infection Onset Date Last Indicated Resolved Time COVID19 Pending 02/04/2020 02/04/2020 02/05/2020 6 :32 AM CDT COVID19 Pending 04/20/2020 04/20/2020 04/22/2020 9 :18 AM DISTRICT HOME ECONOMICS AGENT COVID19 Pending 04/22/2020 04/22/2020 04/23/2020 2 :45 PM DISTRICT HOME ECONOMICS AGENT COVID19 Pending 04/25/2020 04/25/2020 04/26/2020 2 :22 PM DISTRICT HOME ECONOMICS AGENT COVID19 Pending 05/02/2021 05/02/2021 05/02/2021 1 0:49 AM DISTRICT HOME ECONOMICS AGENT MRSA 03/11/2023 03/11/2023 06/09/2023 5:49 AM DISTRICT HOME ECONOMICS AGENT documented as of this encounter Care Teams Exploitation Analyst Relationship Specialty Start Date End Date None Reported, Pcp PCP - General Family Medicine 12/11/23 documented as of this encounter
--- OUTSIDE RECORDS SUMMARY | 2024-12-31 22:03 | XMS_ITS | Encounter Summary ---
Author Organization [facility] Address [address] [place] [address] Care Team Providers Care Production Bow Maker Name Role Phone None Reported, Pcp Primary Care Provider Unavail able Encounter Details Date Type Department Care Team (Late st Contact Info) Description 12/30/2024 Results Follow-Up Department of Obstetrics and Gynecology in [place], [place] [address] [place] [address] Mayra Art, SILAS, C.N.P., M.S.N. [address] [place] [phone] Type and Screen (with Reflex Antibody ID), CBC with Differential, Blood, Hemoglobin A1c, Testing Location Social History Tobacco Use Types Packs/Day Years Used Date Smoking Tobacco: Former Cigarettes 0 06/18/2000 - 05/18/2022 Smokeless Tobacco: Never Comments:curent vaping Alcohol Use Standard Drinks/Week Comments Not Currently 0 (1 standard drink = 0.6 oz pur e alcohol) occassionally [facility] Utilities Answer Date Recorded In the [...] your living situation today? [facility] 02/07/2024 Education Answer Date Recorded What is the highest level of school you have completed or the highest degree you have received? 12th grade 03/05/2020 Estimated Date of Delivery Comme nts Yes 07/14/2025 Based on last me nstrual period of 10/07/2024 Sex and Gender Information Value Date Recorded Sex Assigned at Female 06/27/2018 3:00 PM YOUTH DEVELOPMENT SPECIALIST Legal Sex Female 9:43 AM YOUTH DEVELOPMENT SPECIALIST Gender Identity Female 06/27/2018 3:00 PM YOUTH DEVELOPMENT SPECIALIST Sexual Orientation Straight 06/27/2018 3: 00 PM YOUTH DEVELOPMENT SPECIALIST documented as of this encounter Plan of Treatment Upcoming Encounters Date Type Department Care Team (Latest Contact Info) Description 01/27/2025 9:30 AM CDT Routine Department of Obstetrics and Gynecology in [place], [place] [address] [place] [phone] Mayra Art, SILAS, C.N.P., M.S.N. [address] [place] [phone] Discharge Disposition: Home or Self Care documented as of this encounter Visit Diagnoses Not on filedocumented in this encounter Additional Health Concerns Assessment Noted Time PHQ-9 Depression Total Score: 5 12/31/19 25 1:49 PM CDT documented as of this encounter Care Teams Production Bow Maker Relationship Specialty Start Date End Date None Reported, Pcp PCP - General Family Medicine 12/11/23 documented as of this encounter
--- OUTSIDE RECORDS SUMMARY | 2024-12-31 22:03 | XMS_ITS | Encounter Summary ---
Author Organization [facility] Address [address] [place] [address] Care Team Providers Care Wallpaper Consultant Name Role Phone None Reported, Pcp Primary Care Provider Unavail able Encounter Details Date Type Department Care Team (Latest Contact Info) Description 12/03/2024 Results Follow-Up Department of Obstetrics and Gynecology in [place], [place] [address] [place] [address] Perlita Villanueva CNM [address] [place] [address] OB First Trimester and Transvaginal Social History Tobacco Use Types Packs/Day Years Used Date Smoking Tobacco: Former Cigarettes 0 06/18/2000 - 05/18/2022 Smokeless Tobacco: Never Comments:curent vaping Alcohol Use Standard Drinks/Week Comments Yes 0 (1 standard drink = 0.6 oz pur e alcohol) occassionally [facility] Utilities Answer Date Recorded In the past 12 months has [employer] gas, oil, or water [employer] threatened to shut off services in your [...] your living situation today? I have a [facility] place to live 02/07/2024 Education Answer Date Recorded What is the highest level of school you have completed or the highest degree you have received? 12th grade 03/05/2020 Estimated Date of Delivery Comme nts Yes 07/14/2025 Based on last me nstrual period of 10/07/2024 Sex and Gender Information Value Date Recorded Sex Assigned at Female 06/27/2018 3:00 PM NUTRITION SPECIALIST Legal Sex Female 9:43 AM NUTRITION SPECIALIST Gender Identity Female 06/27/2018 3:00 PM NUTRITION SPECIALIST Sexual Orientation Straight 06/27/2018 3: 00 PM NUTRITION SPECIALIST documented as of this encounter Plan of Treatment Upcoming Encounters Date Type Department Care Team (Latest Contact Info) Description 01/27/2025 9:30 AM CDT Routine Department of Obstetrics and Gynecology in [place], [place] [address] [place] [phone] Mayra Art, SILAS, C.N.P., M.S.N. [address] [place] [phone] Discharge Disposition: Home or Self Care documented as of this encounter Visit Diagnoses Not on filedocumented in this encounter Additional Health Concerns Assessment Noted Time PHQ-9 Depression Total Score: 2 02/07/20 24 12:31 PM CDT documented as of this encounter Care Teams Wallpaper Consultant Relationship Specialty Start Date End Date None Reported, Pcp PCP - General Family Medicine 12/11/23 documented as of this encounter
--- OUTSIDE RECORDS SUMMARY | 2024-12-31 22:03 | XMS_ITS | Encounter Summary ---
Author Organization [facility] Address [address] [place] [address] Care Team Providers Care Rn Geriatric Name Role Phone None Reported, Pcp Primary Care Provider Unavail able Encounter Details Date Type Department Care Team (Late st Contact Info) Description 05/19/2008 Historical Ophthalmology RST OPH Dilip Ledesma M.D. [address] [place] [address] Social History Tobacco Use Types Packs/Day Years Used Date Smoking Tobacco: Never Assessed Comments Unknown Sex and Gender Information Value Date Recorded Sex Assigned at Female 06/27/2018 3:00 PM TILE AND MARBLE INSTALLER Legal Sex Female 9:43 AM TILE AND MARBLE INSTALLER Gender Identity Female 06/27/2018 3:00 PM TILE AND MARBLE INSTALLER Sexual Orientation Straight 06/27/2018 3: 00 PM TILE AND MARBLE INSTALLER documented as of this encounter Progress Notes * Dilip Ledesma M.D. - 05/19/2008 9:52 AM CST Eye General CHIEF COMPLAINT pink eye left eye HISTORY OF PRESENT ILLNESS 3 d hx redness left eye ; using sulfa gtts with improvement, minimal dc. va no change. 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 cont with higher valtrex dose for about one wk. rtc prn andas appointed. 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 [address] [place] [phone] Discharge Disposition: Home or Self Care documented as of this encounter Visit Diagnoses Not on filedocumented in this encounter Additional Health Concerns Infection Onset Date Last Indicated Resolved Time COVID19 Pending 02/04/2020 02/04/2020 02/05/2020 6 :32 AM CDT COVID19 Pending 04/20/2020 04/20/2020 04/22/2020 9 :18 AM TILE AND MARBLE INSTALLER COVID19 Pending 04/22/2020 04/22/2020 04/23/2020 2 :45 PM TILE AND MARBLE INSTALLER COVID19 Pending 04/25/2020 04/25/2020 04/26/2020 2 :22 PM TILE AND MARBLE INSTALLER COVID19 Pending 05/02/2021 05/02/2021 05/02/2021 1 0:49 AM TILE AND MARBLE INSTALLER MRSA 03/11/2023 03/11/2023 06/09/2023 5:49 AM TILE AND MARBLE INSTALLER documented as of this encounter Care Teams Rn Geriatric Relationship Specialty Start Date End Date None Reported, Pcp PCP - General Family Medicine 12/11/23 documented as of this encounter
--- OUTSIDE RECORDS SUMMARY | 2024-12-31 22:03 | XMS_ITS | Encounter Summary ---
Author Organization [facility] Address [address] [place] [address] Care Team Providers Care High Tension Tester Name Role Phone None Reported, Pcp Primary Care Provider Unavail able Reason for Visit * Reason Onset Date Comments Nurse Assessment 12/31/2024 Encounter Details Date Type Department Care Team (Latest Contact Info) Description 12/31/2024 Clinical Communication Department of Obstetrics and Gynecology in [place], [place] [address] [place] [phone] Mayra Art, SILAS, C.N.P., M.S.N. [address] [place] [phone] Nurse Assessment Social History Tobacco Use Types Packs/Day Years Used Date Smoking Tobacco: Former Cigarettes 0 06/18/2000 - 05/18/2022 Smokeless Tobacco: Never Comments:curent vaping Alcohol Use Standard Drinks/Week Comments Not Currently 0 (1 standard drink = 0.6 oz pur e alcohol) occassionally [facility] Utilities Answer Date Recorded In the [...] ways by your partner or ex-partner? No 04 / Within the last year, have y ou [...] your living situation today? I have a [facility] place to live 02/07/2024 Education Answer Date Recorded What is the highest level of school you have completed or the highest degree you have received? 12th grade 03/05/2020 Estimated Date of Delivery Comme nts Yes 07/14/2025 Based on last me nstrual period of 10/07/2024 Sex and Gender Information Value Date Recorded Sex Assigned at Female 06/27/2018 3:00 PM MANAGER SUMMER Legal Sex Female 9:43 AM MANAGER SUMMER Gender Identity Female 06/27/2018 3:00 PM MANAGER SUMMER Sexual Orientation Straight 06/27/2018 3: 00 PM MANAGER SUMMER documented as of this encounter Plan of Treatment Upcoming Encounters Date Type Department Care Team (Latest Contact Info) Description 01/27/2025 9:30 AM CDT Routine Department of Obstetrics and Gynecology in [place], [place] [address] [place] [phone] Mayra Art, BELT MAKER, C.N.P., M.S.N. [address] [place] [phone] Discharge Disposition: Home or Self Care documented as of this encounter Visit Diagnoses Not on filedocumented in this encounter Additional Health Concerns Assessment Noted Time PHQ-9 Depression Total Score: 5 12/31/19 25 1:49 PM CDT documented as of this encounter Care Teams High Tension Tester Relationship Specialty Start Date End Date None Reported, Pcp PCP - General Family Medicine 12/11/23 documented as of this encounter
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
[2024-12-31 22:08] VITALS: BP 123/81; PULSE 85; RESP 18; TEMP 36.7; O2SAT 99; BMI 28.3
[2024-12-31 22:22] LABS: Hematocrit* 34.4 % (33.0-51.0); Hemoglobin* 12.0 gm/dL (12.0-16.0); Immature Granulocytes Abs Auto 0.01 K/uL (0.00-0.30); Immature Granulocytes Pct Auto 0.1 %; Lymphocytes Absolute Auto 2.82 K/uL (0.90-2.90); Mean Corpuscular HGB Conc 35 gm/dL (32-36); Mean Corpuscular Hemoglobin 32 pg (26-34); Mean Corpuscular Volume 93 fL (80-100); RDW Coefficient of Variation % 11.9 % (11.5-15.5); Red Blood Count* 3.72 m/uL (4.00-5.20); White Blood Count* 10.87 K/uL (4.50-11.00)
[2024-12-31 22:29] LABS: Slide Review Reflex No
--- NOTE | 2024-12-31 22:59 | ED.GENADULT ---
HPI - General Adult General Chief complaint: Vaginal Bleeding Stated complaint: spotting 12 wks preg Time Seen by Provider: 12/31/24 22:04 Source: patient Mode of arrival: ambulatory Limitations: no limitations History of Present Illness HPI narrative: 39-year-old female at 12 weeks gestation coming in today with vaginal bleeding. The vaginal spotting started earlier today with brown spots, turned bright red. Still just spotting. Mild cramping. No nausea or vomiting. No urinary symptoms, no diarrhea or constipation. Review of Systems Status of ROS: Reports: 6 or more systems reviewed and unremarkable except as noted in History and below [facility] Medical History No significant past medical history Surgical History No significant past surgical history Social History Smoking Status: Never smoker Second hand tobacco smoke exposure: No How often do you have a drink containing alcohol: never AUDIT-C Alcohol total score: 0 Non-prescribed substance use: denies use Exam Narrative: Exam Narrative: Well-nourished well-developed patient in no acute distress. Alert and oriented. Answers questions appropriately. Mood and affect are appropriate. Thoughts are goal oriented and rational. No tangential or magical thinking noted. Patient speaks in full sentences without needing to catch her breath. HEENT: Normocephalic atraumatic. Pupils are equally round reactive to light. Extraocular muscles are intact. Conjunctivae are moist without any icterus noted. Moist mucous membranes. Posterior pharynx is normal. Cardiovascular: Heart is regular rate and rhythm S1 and S2 are present without any murmurs. Lungs: Clear to auscultation bilaterally no wheezes rhonchi or rales are appreciated. Patient takes deep breaths without any discomfort. Abdomen: Soft and nontender nondistended with normal bowel sounds. Extremities: Bilateral lower extremities are without edema. Skin: Well perfused without any obvious rashes. Const: Vital Signs, click to edit/add: Vital Signs - 24 hr 12/31/24 22:08 Temperature 98.0 F Pulse Rate [Right Pulse Oximeter] 85 Respiratory Rate 18 Blood Pressure [Le ft Upper Arm] 123/81 Pulse Oximetry 99 Oxygen Delivery Me thod Room Air Course Course ED Course: Workup was unremarkable. Ultrasound show lose a single intrauterine at 12 weeks gestation, small chorionic hemorrhage measuring 1.8 x 0.8 x 1.9 cm in the upper uterus. Vital Signs Vital signs: Initial Vital Signs Temperature 98.0 F 12/31/24 22:08 Temperature Source Temporal Artery Scan 12/31/24 22:08 Pulse Rate 85 12/31/24 22:08 Respiratory Rate 18 12/31/24 22:08 Blood Pressure 123/81 12/31/24 22:08 Blood Pressure Mean 95 12/31/24 22:08 Blood Pressure Position Sitting 12/31/24 22:08 Pulse Oximetry 99 12/31/24 22:08 Oxygen Delivery Method Room Air 12/31/24 22:08 Vital Signs Temperature 98.0 F 12/31/24 22:08 Pulse Rate 85 12/31/24 22:08 Respiratory Rate 18 12/31/24 22:08 Blood Pressure 123/81 12/31/24 22:08 Pulse Oximetry 99 12/31/24 22:08 Oxygen Delivery Method Room Air 12/31/24 22:08 Temperature 98.0 F 12/31/24 22:08 Pulse Rate 85 12/31/24 22:08 Respiratory Rate 18 12/31/24 22:08 Blood Pressure 123/81 12/31/24 22:08 Pulse Oximetry 99 12/31/24 22:08 Oxygen Delivery Method Room Air 12/31/24 22:08 Medical Decision Making MDM Narrative Medical decision making narrative: 39-year-old female with vaginal spotting in , subchorionic hemorrhage present. Patient having minimal spotting. Lab Data Lab results reviewed: Yes I reviewed the patient's lab results Labs: Lab Results 12/31/24 12/31/24 Range/Units 22:10 22:17 WBC 10.87 (4.50-11.00) K/uL RBC 3.72 L (4.00-5.20) m/uL Hgb 12.0 (12.0-16.0) gm/dL Hct 34.4 (33.0-51.0) % MCV 93 (80-100) fL MCH 32 (26-34) pg MCHC 35 (32-36) gm/dL RDW Coeff of Raquel 11.9 (11.5-15.5) % Plt Count 248 (140-440) K/uL Neut % (Auto) 68.1 (42.0-72.0) % Lymph % (Auto) 25.9 (20-44) % [place] % (Auto) 5.3 (0.0-11.0) % Eos % (Auto) 0.4 (0.0-7.0) % Baso % (Auto) 0.2 (0.0-3.0) % Neut # (Auto) 7.40 H (1.7-7.0) K/uL Lymph # (Auto) 2.82 (0.90-2.90) K/uL [place] # (Auto) 0.60 (0.00-0.90) K/UL Eos # (Auto) 0.04 (0.00-0.50) K/uL Baso # (Auto) 0.02 (0.00-0.30) K/uL Abs Immat Gran (auto) 0.01 (0.00-0.30) K/uL Imm/Tot Granulo (auto) 0.1 % HCG, Quant 58252.00 mIU/mL Blood Type B Negative Imaging Data US - abdomen: Attestation: I have reviewed the pertinent imaging results. Radiologist's impression: TECHNIQUE: Ultrasound OB pelvis transabdominal. Real-time hemphill-scale imaging of the pelvis was performed. FINDINGS: Sonographic imaging demonstrates a single living intrauterine gestation. The embryo has a regular cardiac rate measuring 171 beats per minute. The embryo`s crown-rump length measures 5.9 cm which corresponds to a gestational age of 12 weeks 3 days with sonographic due date 07/12/2025. The placenta is developing anteriorly. There is a 1.8 x 0.8 x 1.9 cm subchorionic hemorrhage in the upper uterus. The right ovary measures 2.9 x 2.2 x 2.6 cm and the left ovary measures 2.1 x 1.3 x 1.5 cm. Corpus luteal cyst in the right ovary. No free fluid in the pelvic cul-de-sac. IMPRESSION: 1. Single living intrauterine gestation corresponding to an ultrasound gestational age of 12 weeks 3 days with sonographic due date 07/12/2025. 2. The clinical gestational age by LMP is 12 weeks 1 day. 3. Small subchorionic hemorrhage. Discharge Plan Discharge Clinical Impression: Vaginal bleeding, Subchorionic hemorrhage Patient Disposition: Home, Self-Care Condition: Stable Additional Instructions: If your bleeding worsens to the point where you are soaking 1 pad per hour, you should return to the emergency department. No heavy lifting greater than 15 lb. Avoid sexual intercourse or inserting anything in the vagina. Follow-up with your OBGYN as scheduled. Follow Up/Referrals: Isaiah Brice MD [Primary Care Provider, Family Practice] Stand Alone Forms: [facility] Info Instructions
[2024-12-31 23:29] LABS: HCG Quantitative* 55524.00 mIU/mL
[2024-12-31 23:50] VITALS: BP 127/75; PULSE 81; RESP 18; TEMP 36.7; O2SAT 99
[2024-12-31 23:51] VITALS: BP 127/75; PULSE 81; RESP 18; TEMP 36.7
== END 2024-12-31 23:51 | disposition home or self-care (01) ==
PROVIDERS: Emergency Provider Family Medicine; PCP Family Medicine
DX: O99.43 Diseases of the circulatory system complicating the puerperium (principal); Z3A.12 12 weeks gestation of pregnancy
CPT/HCPCS: 36415; 76801; 84702; 85025; 86900; 86901; 99284

== ENCOUNTER 2025-04-21 09:45 | Outpatient (CLI) | payer BC, SELFPAY | END 2025-04-21 09:46 | disposition home or self-care (01) | LOC: NFLDREF 09:46 | PROVIDERS: PCP Family Medicine; Visit Provider Registered Nurse | DX: Z67.91 Unspecified blood type, Rh negative (principal); O26.893 Other specified pregnancy related conditions, third trimester | CPT/HCPCS: 86592; 86850; J2791 ==

== ENCOUNTER 2025-05-05 10:59 | Outpatient (CLI) | payer BC, MEDICAID, SELFPAY ==
--- NOTE | 2025-05-05 11:15 | CRLHL7_ITS ---
For Patients: As a result of the Century Cures Act, medical imaging exams and procedure reports are released immediately into your electronic medical record. You may view this report before your referring provider. If you have questions, please contact your health care provider. OB ULTRASOUND ALEXIS by LMP: 07/14/2025. GA: 30 w, 0 d. Single. Comparison: Ultrasound from [place]. INDICATION: Follow-up anatomy. TECHNIQUE: Real time grayscale imaging of the fetus was performed. Transabdominal. CERVIX: Not visualized. POSITIONING: Vertex. AMNIOTIC FLUID: 5.7 cm. SDP (N: greater than 2 x 1 cm) PLACENTA: Technique: Transabdominal. PLACENTA POSITION: Anterior. DOPPLER: heart rate: 120 bpm. IMPRESSION: When compared to the outside anatomic screening study from [facility] dated 02/24/2025, the RVOT and three-vessel trachea view are both normal. Nik Camara M.D. Diagnostic Radiologist [email or web address] BLADE/ronel rodney/Dictated by: Nik Camara MD @ 05/05/2025 12:05:00 PM (Electronically Signed)
== END 2025-05-05 11:00 | disposition home or self-care (01) ==
LOC: US 11:00
PROVIDERS: PCP Family Medicine; Visit Provider Registered Nurse
DX: O24.419 Gestational diabetes mellitus in pregnancy, unspecified control (principal); O09.523 Supervision of elderly multigravida, third trimester; Z3A.30 30 weeks gestation of pregnancy
CPT/HCPCS: 76816

== ENCOUNTER 2025-05-22 10:40 | Outpatient (CLI) | payer BC, MEDICAID, SELFPAY ==
--- NOTE | 2025-05-22 10:45 | CRLHL7_ITS ---
For Patients: As a result of the Cures Act, medical imaging exams and procedure reports are released immediately into your electronic medical record. You may view this report before your referring provider. If you have questions, please contact your health care provider. OB ULTRASOUND BIOPHYSICAL PROFILE CLINICAL HISTORY: GDM. TECHNIQUE: Real time hemphill scale imaging of the fetus was performed. Transabdominal imaging performed. COMPARISON: 05/05/2025, 02/24/2025, 12/31/2024. FINDINGS: ALEXIS by LMP: 07/14/2025. GA: 32 weeks 3 days. Gestation: Single. Cervix: Not visualized. Positioning: Vertex. Amniotic Fluid: 4.0 cm SDP. BIOPHYSICAL PROFILE Gross Body Movements: 2 Tone: 2 Respiratory Activity: 2 Amniotic Fluid SDP: 2 Total Score: 8 Placenta: Technique: TA. Placenta Position: Anterior. Dopplers: Heart Rate: 159 bpm. BIOMETRY BPD: 7.2 cm, 28 weeks 5 days. <3% HC: 29.3 cm, 32 weeks 2 days. 12.5% AC: 29.9 cm, 33 weeks 6 days. 86.8% FL: 6.6 cm, 34 weeks 0 days. 78.7% FL/AC Ratio: 22.07% HC/AC Ratio: 0.98. EFW: 2149 grams, 4 lb 12 oz. Age by this US: 32 weeks 2 days. ALEXIS by this US: 07/15/2025. Percentile by ALEXIS: 66.0% IMPRESSION: 1. Sonographic gestational age 32 weeks 2 days and sonographic due date 07/15/2025. Good correlation with dates. Normal interval growth. 2. Estimated weight 66th percentile Abdominal circumference 87th percentile. 3. Biparietal diameter less than 3rd percentile. 4. Normal biophysical profile 01/23. Nik Camara M.D. Diagnostic Radiologist [email or web address] Transcribed: 11:56 am DW/Dictated by: Nik Camara MD @ 05/22/2025 11:18:00 AM (Electronically Signed)
== END 2025-05-22 10:41 | disposition home or self-care (01) ==
LOC: US 10:40
PROVIDERS: PCP Family Medicine; Visit Provider Physician Assistant
DX: O24.419 Gestational diabetes mellitus in pregnancy, unspecified control (principal); Z3A.32 32 weeks gestation of pregnancy
CPT/HCPCS: 76816; 76819

== ENCOUNTER 2025-05-29 09:13 | Outpatient (CLI) | payer BC, MEDICAID, SELFPAY ==
--- NOTE | 2025-05-29 09:15 | CRLHL7_ITS ---
For Patients: As a result of the Cures Act, medical imaging exams and procedure reports are released immediately into your electronic medical record. You may view this report before your referring provider. If you have questions, please contact your health care provider. OBSTETRICAL ULTRASOUND ??? BIOPHYSICAL PROFILE INDICATION: Gestational diabetes mellitus in . CLINICAL HISTORY: ALEXIS by LMP: 07/14/2025 Gestational Age: 33 weeks 3 days COMPARISON: 05/22/2025, 05/05/2025. TECHNIQUE: Real-time hemphill-scale transabdominal imaging of the fetus was performed. FINDINGS: Fetus: Single Cervix: Not visualized positioning: Vertex Amniotic Fluid: 5.2 cm SDP BIOPHYSICAL PROFILE: Gross body movements: 2 tone: 2 Respiratory activity: 2 Amniotic fluid SDP: 2 Total score: 8 Placenta technique: Transabdominal Placenta position: Anterior heart rate: 147 bpm IMPRESSION: Normal biophysical profile score of 8/8. NIK BLEVINS M.D. Diagnostic Radiologist [email or web address] Transcribed: 10:[address]/Dictated by: Nik Blevins MD @ 05/29/2025 9:49:00 AM (Electronically Signed)
== END 2025-05-29 09:14 | disposition home or self-care (01) ==
LOC: US 09:13
PROVIDERS: PCP Family Medicine; Visit Provider Physician Assistant
DX: O24.419 Gestational diabetes mellitus in pregnancy, unspecified control (principal); Z3A.33 33 weeks gestation of pregnancy
CPT/HCPCS: 76819

== ENCOUNTER 2025-06-05 12:11 | Outpatient (CLI) | payer BC, MEDICAID, SELFPAY ==
--- NOTE | 2025-06-05 12:15 | CRLHL7_ITS ---
For Patients: As a result of the Cures Act, medical imaging exams and procedure reports are released immediately into your electronic medical record. You may view this report before your referring provider. If you have questions, please contact your health care provider. OB ULTRASOUND BIOPHYSICAL PROFILE CLINICAL HISTORY: GDMA. TECHNIQUE: Real time hemphill scale imaging of the fetus was performed. Transabdominal imaging performed. COMPARISON: 05/29/2025, 05/05/2025, 02/24/2025, 12/31/2024. FINDINGS: ALEXIS by LMP: 07/14/2025. GA: 34 weeks 3 days. Gestation: Single. Cervix: Not visualized. Positioning: Vertex. Amniotic Fluid: 5.9 cm SDP. BIOPHYSICAL PROFILE Gross Body Movements: 2 Tone: 2 Respiratory Activity: 2 Amniotic Fluid SDP: 2 Total Score: 8 Placenta: Technique: TA. Placenta Position: Anterior. Dopplers: Heart Rate: 141 bpm. IMPRESSION: Normal biophysical profile score of 8/8. Nik Camara M.D. Diagnostic Radiologist [email or web address] Transcribed: 1:22 pm DW/Dictated by: Nik Camara MD @ 06/05/2025 1:07:00 PM (Electronically Signed)
== END 2025-06-05 12:12 | disposition home or self-care (01) ==
LOC: US 12:11
PROVIDERS: PCP Family Medicine; Visit Provider Physician Assistant
DX: O24.419 Gestational diabetes mellitus in pregnancy, unspecified control (principal); Z36.89 Encounter for other specified antenatal screening; Z3A.34 34 weeks gestation of pregnancy
CPT/HCPCS: 76819

== ENCOUNTER 2025-06-12 12:11 | Outpatient (CLI) | payer BC, MEDICAID, SELFPAY ==
--- NOTE | 2025-06-12 12:15 | CRLHL7_ITS ---
For Patients: As a result of the Century Cures Act, medical imaging exams and procedure reports are released immediately into your electronic medical record. You may view this report before your referring provider. If you have questions, please contact your health care provider. OB ULTRASOUND 06/12/2025 INDICATION: GDM. TECHNIQUE: Real time hemphill scale imaging of the fetus was performed. Transvaginal imaging performed. ALEXIS by LMP: 07/14/2025. GA: 35 w, 3 d. Single. Comparison: 06/05/2025, 05/29/2025, 05/22/2025. CERVIX: Not Visualized. POSITIONING: Vertex. AMNIOTIC FLUID: 5.6 cm SDP (N: greater than 2 x 1 cm) BIOPHYSICAL PROFILE: Gross body movements: 2. tone: 2. Respiratory activity: 2. Amniotic fluid: 2. SDP (N: greater than 2 x 1 cm). Total score: 8. PLACENTA: Technique: Transabdominal. PLACENTA POSITION: Anterior. DOPPLER: heart rate: 154 bpm. IMPRESSION: Normal biophysical profile 01/23. NIK BLEVINS M.D. Diagnostic Radiologist [email or web address] DW/Dictated by: Nik Blevins MD @ 06/14/2025 1:41:00 PM (Electronically Signed)
== END 2025-06-12 12:12 | disposition home or self-care (01) ==
LOC: US 12:11
PROVIDERS: PCP Family Medicine; Visit Provider Physician Assistant
DX: O24.419 Gestational diabetes mellitus in pregnancy, unspecified control (principal); Z3A.36 36 weeks gestation of pregnancy
CPT/HCPCS: 76819

== ENCOUNTER 2025-06-12 13:40 | Outpatient (CLI) | payer BC, MEDICAID, SELFPAY ==
[2025-06-13 12:42] LABS: Strep B DNA Probe Negative (Negative)
[2025-06-13 13:20] LABS: Strep B Susceptibility Needed? No
== END 2025-06-12 13:41 | disposition home or self-care (01) ==
LOC: NFLDREF 13:40
PROVIDERS: PCP Family Medicine; Visit Provider Obstetrics & Gynecology
DX: Z34.93 Encounter for supervision of normal pregnancy, unspecified, third trimester (principal)
CPT/HCPCS: 87081; 87653